=== PATIENT | male | born 1950 | race Caucasian/White ===

== ENCOUNTER → 2016-03-29 | Outpatient (CLI) | payer MEDICARE | LOC: RAD 13:52 | PROVIDERS: ATTEND Physician Assistant | DX: N50.9 Disorder of male genital organs, unspecified (principal) | CPT/HCPCS: 76870 ==

== ENCOUNTER → 2016-10-22 | Outpatient (CLI) | payer MEDICARE ==
--- NOTE | 2016-10-22 08:30 | RADIOLOGY REPORT (SQ) ---
EXAM DESCRIPTION: U/S ABDOMEN LIMITED W/O DOP COMPLETED DATE/TIME: 10/22/2016 8:13 am REASON FOR STUDY: ABN LFT (R94.5) R94.5 ABNORMAL RESULTS OF LIVER FUNCTION STUDIES COMPARISON: None. TECHNIQUE: Dynamic and static grayscale images acquired of the abdomen and recorded on PACS. Additio nal selected color Doppler and spectral images recorded. LIMITATIONS: None. FINDINGS: PANCREAS: The visualized portion of the pancreas are normal in appearance. LIVER: There is a simple cyst in the left lobe measured 2.9 x 2.6 x 2.4 cm. The liver is echogenic c onsistent with fatty infiltration. LIVER VASCULATURE: Normal directional flow of the main portal vein and hepatic veins. GALLBLADDER: No stones. Normal wall thickness. No pericholecystic fluid. ULTRASOUND-DETECTED BASSETT'S SIGN: Negative. INTRAHEPATIC DUCTS AND COMMON DUCT: CBD and intrahepatic ducts normal caliber. No filling defects. INFERIOR VENA CAVA: Normal flow. AORTA: No aneurysm. RIGHT KIDNEY: Normal size. Normal echogenicity. No solid or suspicious masses. No hydronephrosis. No calcifications. PERITONEAL AND RIGHT PLEURAL SPACE: No ascites or effusions. OTHER: No other significant findings. IMPRESSION: Fatty infiltrated liver with a simple cyst in the left lobe. TECHNICAL DOCUMENTATION: JOB ID: [id number] [employer]- All Rights Reserved
== END ==
LOC: RAD 07:30
PROVIDERS: ATTEND Family Medicine
DX: R94.5 Abnormal results of liver function studies (principal)
CPT/HCPCS: 76705

== ENCOUNTER → 2016-10-29 | Outpatient (CLI) | payer MEDICARE ==
--- NOTE | 2016-10-29 11:48 | RADIOLOGY REPORT (SQ) ---
EXAM DESCRIPTION: CT CHEST WITHOUT COMPLETED DATE/TIME: 10/29/2016 10:17 am REASON FOR STUDY: COUGH (R05) R05 COUGH COMPARISON: Three-way abdomen series 430 2007 Abdominal ultrasound 10/22/2016 TECHNIQUE: CT scan performed of the chest without intravenous contrast. Images reviewed with lung, soft tissue and bone windows. Reconstructed coronal and sagittal MPR images reviewed. All images st ored on PACS. All CT scanners at this facility use dose modulation, iterative reconstruction, and/or weight based d osing when appropriate to reduce radiation dose to as low as reasonably achievable (ALARA). [facility]: Dose Right [facility]: CareDose [facility]: Dose Right [facility]: Teradose 4D [facility]: [employer] RADIATION DOSE: Up-to-date CT equipment and radiation dose reduction techniques were employed. CTDIv ol: 16.5 mGy. DLP: 649 mGy-cm. mGy. LIMITATIONS: No technical limitations. FINDINGS: LUNGS AND PLEURA: No masses, infiltrates, pneumothorax. No pleural effusions, calcificati ons. HILAR AND MEDIASTINAL STRUCTURES: No identified masses or abnormal nodes. No obvious aneurysm. HEART AND VASCULAR STRUCTURES: No aneurysm. No pericardial effusion. Minimal coronary artery calcif ication. UPPER ABDOMEN: Benign hepatic cysts, similar compared to abdominal ultrasound 10/22/2016 THYROID AND OTHER SOFT TISSUES: No masses. No adenopathy. BONES: No significant finding. HARDWARE: None in the chest. OTHER: No other significant findings. IMPRESSION: NO SIGNIFICANT FINDING ON NON-CONTRASTED CHEST CT. TECHNICAL DOCUMENTATION: JOB ID: [id number] Quality ID # [id number]: Final reports with documentation of one or more dose reduction techniques (e.g., Au tomated exposure control, adjustment of the mA and/or kV according to patient size, use of iterative reconstruction technique) 2010 [employer]- All Rights Reserved
== END ==
LOC: RAD 09:53
PROVIDERS: ATTEND Family Medicine
DX: R05 Cough (principal)
CPT/HCPCS: 71250

== ENCOUNTER → 2017-08-08 | Outpatient (CLI) | payer MEDICARE ==
--- NOTE | 2017-08-08 13:20 | XCELERA REPORT ---
[address] [address] Lower Extremity Venous Evaluation Name: STEPHANY GOODE Age: 67 yrs Gender: Male : 1950 Patient Status: Outpatient Patient Location: Study Date: 08/08/2017 11:14 AM Procedure: Color flow and duplex imaging of the veins of the left lower extremity as well as the right Common Femoral vein. Reason For Study: LLE PAIN Ordering Physician: KEHINDE PEARSON Performed By: Latanya Arreola Right Sided Venous Evaluation The right common femoral vein is fully compressible. Spontaneous and phasic flow is present in the right common femoral vein. Left Sided Venous Evaluation Normal vessel filling wall to wall, compression and augmentation as well as Colour flow down to the infrageniculate veins. Interpretation Summary No duplex evidence of DVT or obstruction in the left lower extremity nor in the right Common Femoral vein. : KEHINDE PEARSON > Dez Gallegos
== END ==
LOC: SP 10:19
PROVIDERS: ATTEND Family Medicine
DX: M79.605 Pain in left leg (principal)
CPT/HCPCS: 93971

== ENCOUNTER → 2017-09-02 | Outpatient (CLI) | payer MEDICARE, OTHER ==
--- NOTE | 2017-09-02 09:20 | RADIOLOGY REPORT (SQ) ---
EXAM DESCRIPTION: ANKLE LEFT COMPLETE COMPLETED DATE/TIME: 09/02/2017 9:11 am REASON FOR STUDY: NON-PRESSURE CHRONIC ULCER OF LEFT ANKLE W FAT LAYER EXPOSED (L97.322) L97.322 N ON-PRESSURE CHRONIC ULCER OF LEFT ANKLE W FAT LAYER COMPARISON: None. NUMBER OF VIEWS: Three views. TECHNIQUE: AP, lateral, and oblique radiographic images acquired of the left ankle. LIMITATIONS: None. FINDINGS: MINERALIZATION: Normal. BONES: No acute fracture or dislocation. No worrisome bone lesions. JOINTS: No effusions. SOFT TISSUES: Mild soft tissue swelling. Surgical metallic clips in the posteromedial soft tissues. OTHER: No other significant finding. IMPRESSION: NEGATIVE STUDY OF THE LEFT ANKLE. TECHNICAL DOCUMENTATION: JOB ID: [id number] [employer]- All Rights Reserved Reading location - IP/workstation name: [email or web address]
== END ==
LOC: RAD 08:43
PROVIDERS: ATTEND Nurse Practitioner
DX: L97.322 Non-pressure chronic ulcer of left ankle with fat layer exposed (principal)

== ENCOUNTER → 2017-09-12 | Outpatient (CLI) | payer MEDICARE, OTHER ==
--- NOTE | 2017-09-14 14:01 | XCELERA REPORT ---
[address] [address] Lower Extremity Arterial Evaluation Name: STEPHANY GOODE Age: 67 yrs Gender: Male : 1950 Patient Status: Outpatient Patient Location: Study Date: 09/12/2017 01:20 PM Procedure: A color flow and duplex scan of the lower extremity arteries was performed bilaterally with velocity and waveform anaylsis. Reason For Study: ULCER Ordering Physician: PRATEEK BRASWELL Performed By: Jensen Shanks Measurements and Calculations Right Left [employer] MECHANIC PSV 99.9 101.8 cm/sec Prox PFA PSV 74.4 -71.0 cm/sec Prox SFA PSV 98.1 91.8 cm/sec Mid SFA PSV -101.8 -120.8 cm/sec Dist SFA PSV -89.3 -74.4 cm/sec Prox Pop A PSV 79.2 86.0 cm/sec Dist LUX PSV 70.7 65.2 cm/sec Dist DIRECTOR OF TRANSPORTATION PSV 66.8 120.8 cm/sec Elio Pedis PSV 43.2 90.8 cm/sec Right Side Arterial Evaluation Normal velocity and triphasic waveforms noted from the Common Femoral artery to the infrageniculate vessels. 0 % stenosis. Ankle Brachial index is 1.07. Left Side Arterial Evaluation Normal velocity and triphasic waveforms noted from the Common Femoral artery to the infrageniculate vessels. Reversed flow in the Dorsalis Pedis. 0-19 % stenosis in the Dorsalis Pedis.. Ankle Brachial index is 1.07. Interpretation Summary No hemodynamically significant lesions in the right lower extremity only, on duplex imaging, at rest. Mild hemodynamically significant lesions in the left lower extremity only, on duplex imaging, at rest. : PRATEEK BRASWELL > Dez Gallegos
== END ==
LOC: SP 12:46
PROVIDERS: ATTEND Nurse Practitioner
DX: L97.322 Non-pressure chronic ulcer of left ankle with fat layer exposed (principal)
CPT/HCPCS: 93922; 93925

== ENCOUNTER → 2017-11-01 | Outpatient (CLI) | payer MEDICARE, OTHER ==
--- NOTE | 2017-11-01 10:52 | RADIOLOGY REPORT (SQ) ---
EXAM DESCRIPTION: U/S ABDOMEN LIMITED W/O DOP COMPLETED DATE/TIME: 11/01/2017 10:41 am REASON FOR STUDY: FATTY (CHANGE OF) LIVER, NOT ELSEWHERE CLASSIFIED K76.0 FATTY (CHANGE OF) LIVER, NOT ELSEWHERE CLASSIFIED COMPARISON: 10/22/2016 TECHNIQUE: Dynamic and static grayscale images acquired of the abdomen and recorded on PACS. Additio nal selected color Doppler and spectral images recorded. LIMITATIONS: None. FINDINGS: PANCREAS: No masses. Visualized pancreatic duct normal caliber. LIVER: There is fatty infiltration of the liver. Small cyst in the left lobe is again noted. No int erval change. LIVER VASCULATURE: Normal directional flow of the main portal vein and hepatic veins. GALLBLADDER: No stones. Normal wall thickness. No pericholecystic fluid. ULTRASOUND-DETECTED BASSETT'S SIGN: Negative. INTRAHEPATIC DUCTS AND COMMON DUCT: CBD and intrahepatic ducts normal caliber. No filling defects. INFERIOR VENA CAVA: Normal flow. AORTA: No aneurysm. RIGHT KIDNEY: Normal size. Normal echogenicity. No solid or suspicious masses. No hydronephrosis. No calcifications. PERITONEAL AND RIGHT PLEURAL SPACE: No ascites or effusions. OTHER: No other significant findings. IMPRESSION: Fatty infiltrated liver with a small cyst in the left lobe. Findings are stable from 20 17. TECHNICAL DOCUMENTATION: JOB ID: [id number] [employer]- All Rights Reserved Reading location - IP/workstation name: [email or web address]
== END ==
LOC: RAD 09:36
PROVIDERS: ATTEND Family Medicine
DX: K76.0 Fatty (change of) liver, not elsewhere classified (principal)
CPT/HCPCS: 76705

== ENCOUNTER → 2018-12-03 | Outpatient (CLI) | payer MEDICARE, OTHER ==
--- NOTE | 2018-12-03 08:22 | RADIOLOGY REPORT (SQ) ---
EXAM DESCRIPTION: U/S ABDOMEN LIMITED W/O DOP COMPLETED DATE/TIME: 12/03/2018 7:40 am REASON FOR STUDY: FATTY (CHANGE OF) LIVER, NEC (K76.0) K76.0 FATTY (CHANGE OF) LIVER, NOT ELSEWHERE CLASSIFIED COMPARISON: 11/01/2017 TECHNIQUE: Dynamic and static grayscale images acquired of the abdomen and recorded on PACS. Additio nal selected color Doppler and spectral images recorded. LIMITATIONS: None. FINDINGS: PANCREAS: The pancreas is obscured by overlying bowel gas. LIVER: Echotexture is coarse with increased echogenicity consistent with fatty infiltration. Multipl e hepatic cysts. Mild hepatomegaly. The liver measures 20.9 cm in cranial caudal dimensions. LIVER VASCULATURE: Normal directional flow of the main portal vein and hepatic veins. GALLBLADDER: No stones. Normal wall thickness. No pericholecystic fluid. ULTRASOUND-DETECTED BASSETT'S SIGN: Negative. INTRAHEPATIC DUCTS AND COMMON DUCT: CBD and intrahepatic ducts normal caliber. No filling defects. RIGHT KIDNEY: Normal size. Normal echogenicity. No solid or suspicious masses. No hydronephros is. No calcifications. PERITONEAL AND RIGHT PLEURAL SPACE: No ascites or effusions. OTHER: Visualized portions of the aorta are normal in caliber. IMPRESSION: FATTY INFILTRATION OF THE LIVER. OTHERWISE NORMAL RIGHT UPPER QUADRANT ULTRASOUND. TECHNICAL DOCUMENTATION: JOB ID: [id number] [employer]- All Rights Reserved Reading location - IP/workstation name: [email or web address]
== END ==
LOC: RAD 07:08
PROVIDERS: ATTEND Family Medicine
DX: K76.0 Fatty (change of) liver, not elsewhere classified (principal)
CPT/HCPCS: 76705

== ENCOUNTER → 2019-07-08 | Outpatient (CLI) | payer MEDICARE, OTHER ==
[2019-07-08 09:21] LABS: ABSOLUTE BASOPHILS # (AUTO) 0.1 10^3/uL (0.0-0.2); ABSOLUTE EOSINOPHILS # (AUTO) 0.5 10^3/uL (0.0-0.6); ABSOLUTE LYMPHOCYTES (AUTO) 0.4 10^3/uL (0.5-4.7); ABSOLUTE MONOCYTES (AUTO) 0.5 10^3/uL (0.1-1.4); ABSOLUTE NEUT (AUTO) 3.8 10^3/uL (1.7-8.2); EOSINOPHILS % (AUTO) 9.5 % (0-6); HEMATOCRIT 35.6 % (37.9-51.0); LYMPHOCYTES % (AUTO) 7.5 % (13-45); MEAN CORPUSCULAR HGB CONC 36.6 g/dL (32.0-36.0); MEAN CORPUSCULAR VOLUME 98 fl (80-97); MONOCYTES % (AUTO) 9.1 % (3-13); RED BLOOD COUNT 3.63 10^6/uL (4.35-5.55); RED CELL DISTRIBUTION WIDTH 13.5 % (11.5-14.0); SEGMENTED NEUTROPHILS % (AUTO) 72.9 % (42-78); TOTAL CELLS COUNTED % (AUTO) 100 %; WHITE BLOOD COUNT 5.2 10^3/uL (4.0-10.5)
[2019-07-08 09:37] LABS: ALKALINE PHOSPHATASE 84 U/L (38-126); ANION GAP 12 (5-19); ASPARTATE AMINO TRANSFERASE 80 U/L (17-59); BILIRUBIN,DIRECT 0.3 mg/dL (0.0-0.4); BILIRUBIN,TOTAL 1.3 mg/dL (0.2-1.3); BLOOD UREA NITROGEN 19 mg/dL (7-20); CALCIUM 9.1 mg/dL (8.4-10.2); CARBON DIOXIDE 21 mmol/L (22-30); CHLORIDE 104 mmol/L (98-107); CHOLESTEROL 116.31 mg/dL (0-200); GLUCOSE 127 mg/dL (75-110); POTASSIUM 3.8 mmol/L (3.6-5.0); TOTAL PROTEIN 8.2 g/dL (6.3-8.2); TRIGLYCERIDES 88 mg/dL (<150)
[2019-07-08 09:55] LABS: DIRECT LDL 87 mg/dL (<100)
[2019-07-08 10:22] LABS: PLATELET COUNT 70 10^3/uL (150-450)
== END ==
LOC: OD 08:17
PROVIDERS: ATTEND Family Medicine
DX: E78.2 Mixed hyperlipidemia (principal); E03.9 Hypothyroidism, unspecified; E11.59 Type 2 diabetes mellitus with other circulatory complications; R10.32 Left lower quadrant pain
CPT/HCPCS: 36415; 80053; 80061; 83036; 83690; 84436; 84443; 85025

== ENCOUNTER 2019-07-15 13:33 | Emergency (ER) | payer MEDICARE, OTHER ==
--- NOTE | 2019-07-15 14:07 | ER Document Report ---
ED Medical Screen (RME) - General Chief Complaint: Leg Pain Stated Complaint: LEG PAIN Time Seen by Provider: 07/15/19 14:00 Primary Care Provider: KEHINDE PEARSON MD [Primary Care Provider] - Follow up as needed Mode of Arrival: Ambulatory Information source: Patient Notes: Patient presents complaining of left lower extremity pain and swelling for the past week. Patient has a history of DVT and is concerned about this. Patient is not presently on any anticoagulants. Patient states that he does have a venous stasis ulcer to the left ankle that appears to be getting larger. Patient also states that his platelets have been low and he sees an oncologist for this. Patient also reports a history of diabetes. I have greeted and performed a rapid initial assessment of this patient. A comprehensive ED assessment and evaluation of the patient, analysis of test results and completion of the medical decision making process will be conducted by additional ED providers. TRAVEL OUTSIDE OF THE [place] IN LAST 30 DAYS: No Physical Exam - General General appearance: Alert Notes: Left lower extremity swelling, tenderness, chronic stasis wound to medial aspect of left ankle Doctor's Discharge - Discharge Referrals: KEHINDE PEARSON MD [Primary Care Provider] - Follow up as needed
[2019-07-15 15:05] LABS: ALBUMIN 3.6 g/dL (3.5-5.0); ALKALINE PHOSPHATASE 71 U/L (38-126); ANION GAP 10 (5-19); ASPARTATE AMINO TRANSFERASE 62 U/L (17-59); BILIRUBIN,DIRECT 0.3 mg/dL (0.0-0.4); BILIRUBIN,TOTAL 1.1 mg/dL (0.2-1.3); BLOOD UREA NITROGEN 20 mg/dL (7-20); CALCIUM 8.5 mg/dL (8.4-10.2); CARBON DIOXIDE 20 mmol/L (22-30); CHLORIDE 108 mmol/L (98-107); GLUCOSE 110 mg/dL (75-110); POTASSIUM 3.5 mmol/L (3.6-5.0); TOTAL PROTEIN 7.6 g/dL (6.3-8.2)
--- NOTE | 2019-07-15 15:14 | ER Document Report ---
ED General - General Chief Complaint: Leg Pain Stated Complaint: LEG PAIN Time Seen by Provider: 07/15/19 14:00 Primary Care Provider: KEHINDE PEARSON MD [Primary Care Provider] - Follow up as needed Mode of Arrival: Ambulatory Notes: 69 male with remote history of DVT off blood thinners now presents with 1 week of left leg swelling pain tenderness and shiny edema. Worse with walking and wh en keeping it down. No chest pain or shortness of breath. No fever. History of low plateletsfollowed by Dr. Jose Robert. Denies chest pain shortness of breath or fever. No numbness or tingling that e xtremity. TRAVEL OUTSIDE OF THE [place] IN LAST 30 DAYS: No - Related Data Allergies/Adverse Reactions: No Known Allergies Allergy (Unverified 07/15/19 15:42) Past Medical History - General Information source: Patient - Social History Smoking Status: Former Smoker Family History: Reviewed & Not Pertinent - Medical History Medical History: Other - DVT hematologic problems Review of Systems - Review of Systems Notes: REVIEW OF SYSTEMS GEN: Denies fever, chills, weight loss ENT: Denies sore throat, nasal discharge, ear pain EYES: Denies blurry vision, eye pain, discharge CV: Denies chest pain, palpitations, edema RESP: Denies cough, shortness of breath, wheezing GI: Denies abdominal pain, nausea, vomiting, diarrhea MSK: PI, SKIN: See HPI LYMPH: Denies swollen glands/lymph nodes NEURO: Denies headache, focal weakness or numbness, dizziness PSYCH: Denies depression, suicidal or homicidal ideation PHYSICAL EXAMINATION General: No acute distress, well-nourished Head: Atraumatic, normocephalic ENT: Mouth normal, oropharynx moist, no exudates or tonsillar enlargement Eyes: Conjunctiva normal, pupils equal, lids normal Neck: No JVD, supple, no guarding CVS: Normal rate, regular rhythm, no murmurs Resp: No resp distress, equal and normal breath sounds bilaterally GI: Nondistended, soft, no tenderness to palpation, no rebound or guarding Ext: Left calf edema from the popliteal down to the foot shiny tender with mild erythema. No fluctuance bullae crepitus or other concerning findings t Back: No CVA or midline TTP Skin: No rash, warm Lymphatic: No lymphadeopathy noted Neuro: Awake, alert. Face symmetric. GCS 15. Physical Exam - Vital signs Vitals: Temp Pulse Resp BP Pulse Ox 98.7 F 80 18 142/68 H 98 07/15/19 13:59 07/15/19 13:59 07/15/19 13:59 07/15/19 13:59 07/15/19 13:59 Course - Re-evaluation Re-evalutation: 07/15/19 15:13 Unilateral leg swelling with a history of DVT, physical exam is more consistent with cellulitis. X-ray examined the patient while the vascular technologist was performing his Doppler, and did not find any acute or chronic DVT or superficial thrombosis. Assuming a white count that is reasonably within normal range and no horrible thrombocytopenia and when to treat him with oral antibiotics and refer him back to his primary care. I have discussed with the patient there likely diagnosis, aftercare plan, follow-up plans and my usual and customary return precautions. They verbalized understanding of this. - Vital Signs Vital signs: Temp Pulse Resp BP Pulse Ox 98.7 F 80 18 142/68 H 98 07/15/19 15:42 07/15/19 13:59 07/15/19 13:59 07/15/19 13:59 07/15/19 13:59 07/15/19 16:27 Platelets 50-farhad, slightly down from 70 but no active bleeding. Leg does not appear to be a spontaneous bleed/minimus of compartment syndrome. Discharged with Keflex, elevate compress and follow-up with Dr. Jose Robert. - Laboratory Result Diagrams: 07/15/19 15:22 07/15/19 14:22 Laboratory results interpreted by me: 07/15/19 07/15/19 14:22 15:22 RBC 3.26 L Hgb 11.7 L Hct 32.5 L MCV 100 H MCH 36.0 H Plt Count 51 L Lymph % (Auto) 8.9 L Elliott % (Auto) 13.8 H Eos % (Auto) 9.6 H Absolute Lymphs (auto) 0.4 L Potassium 3.5 L Chloride 108 H Carbon Dioxide 20 L AST 62 H - Diagnostic Test Radiology reviewed: Image reviewed, Reports reviewed Discharge - Discharge Clinical Impression: Cellulitis of left lower limb Condition: Good Disposition: HOME, SELF-CARE Instructions: Cellulitis ([facility]) Prescriptions: Cephalexin [Cephalexin 500 MG Tablet] 1 tab PO QID #40 tablet Referrals: KEHINDE PEARSON MD [Primary Care Provider] - Follow up as needed
[2019-07-15 15:43] LABS: ABSOLUTE EOSINOPHILS # (AUTO) 0.5 10^3/uL (0.0-0.6); ABSOLUTE LYMPHOCYTES (AUTO) 0.4 10^3/uL (0.5-4.7); ABSOLUTE MONOCYTES (AUTO) 0.7 10^3/uL (0.1-1.4); ABSOLUTE NEUT (AUTO) 3.2 10^3/uL (1.7-8.2); EOSINOPHILS % (AUTO) 9.6 % (0-6); HEMATOCRIT 32.5 % (37.9-51.0); HEMOGLOBIN 11.7 g/dL (13.5-17.0); LYMPHOCYTES % (AUTO) 8.9 % (13-45); MEAN CORPUSCULAR VOLUME 100 fl (80-97); MONOCYTES % (AUTO) 13.8 % (3-13); RED BLOOD COUNT 3.26 10^6/uL (4.35-5.55); RED CELL DISTRIBUTION WIDTH 13.3 % (11.5-14.0); SEGMENTED NEUTROPHILS % (AUTO) 66.7 % (42-78); TOTAL CELLS COUNTED % (AUTO) 100 %; WHITE BLOOD COUNT 4.8 10^3/uL (4.0-10.5)
[2019-07-15 16:02] LABS: PLATELET COUNT 51 10^3/uL (150-450)
--- NOTE | 2019-07-15 16:10 | RADIOLOGY REPORT (SQ) ---
EXAM DESCRIPTION: VENOUS UNILATERAL LOWER IMAGES COMPLETED DATE/TIME: 07/15/2019 3:43 pm REASON FOR STUDY: LLE pain, swelling COMPARISON: None. TECHNIQUE: Dynamic and static mcguire scale and color images acquired of the left leg venous system. Se lected spectral images acquired with additional compression and augmentation maneuvers. The contralat eral common femoral vein and saphenofemoral junction were also imaged. Images stored on PACS. LIMITATIONS: None. FINDINGS: COMMON FEMORAL: Normal phasicity, compression and augmentation. No visualized echogenic ma terial on mcguire scale. No defects on color images. FEMORAL: Normal compression and augmentation. No visualized echogenic material on mcguire scale. No defe cts on color images. POPLITEAL: Normal compression, augmentation. No visualized echogenic material on mcguire scale. No defec ts on color images. CALF VESSELS: Normal compression, augmentation. No visualized echogenic material on mcguire scale. No de fects on color images. GSV: The vessel has been previously stripped. ANY DEEP VENOUS INSUFFICIENCY: No. ANY EVIDENCE OF POPLITEAL CYST: No. OTHER: No other finding. CONTRALATERAL COMMON FEMORAL VEIN AND SAPHENOFEMORAL JUNCTION: Normal phasicity, compression and augmentation. No visualized echogenic material on mcguire scale. No de fects on color images. IMPRESSION: NO EVIDENCE OF DVT OR SVT IN THE LEFT LEG. TECHNICAL DOCUMENTATION: JOB ID: [id number] 2010 [employer]- All Rights Reserved Reading location - IP/workstation name: [email or web address]
[2019-07-15 17:02] VITALS: BP 144/74
== END 2019-07-15 17:04 | disposition home or self-care (01) ==
LOC: ER 13:33
DX: L03.116 Cellulitis of left lower limb (principal); Z86.718 Personal history of other venous thrombosis and embolism; Z87.891 Personal history of nicotine dependence
CPT/HCPCS: 36415; 80053; 85025; 93971; 99283

== ENCOUNTER → 2019-08-10 | Outpatient (CLI) | payer MEDICARE, OTHER ==
--- NOTE | 2019-08-11 08:34 | RADIOLOGY REPORT (SQ) ---
EXAM DESCRIPTION: ARTERIAL LOWER EXTREM BILAT IMAGES COMPLETED DATE/TIME: 08/10/2019 4:10 pm REASON FOR STUDY: LT ANKLE ULCER L97.322 NON-PRESSURE CHRONIC ULCER OF LEFT ANKLE W FAT LAYER COMPARISON: None. TECHNIQUE: Dynamic and static mcguire scale and color images acquired of the lower extremity arteries. Additional selected spectral images recorded. ABIs recorded. LIMITATIONS: None. FINDINGS: RIGHT LEG: ABIS: Normal, over 1.0. INFLOW ARTERIES: Normal, no obstruction evident. FEMORAL ARTERIES:Multiphasic waveforms. Normal, no velocity elevation to suggest focal stenosis. Norm al color Doppler evaluation. No aneurysm. POPLITEAL ARTERY:Multiphasic waveforms. Normal, no velocity elevation to suggest focal stenosis. Norm al color Doppler evaluation. No aneurysm. PATENT TIBIOPERONEAL TRUNK AND 3 VESSEL RUNOFF: Yes, normal vessels. TBI: Not performed. OTHER: No other significant finding. LEFT LEG: ABIS: Normal, over 1.0. INFLOW ARTERIES: Normal, no obstruction evident. FEMORAL ARTERIES:Multiphasic waveforms. Normal, no velocity elevation to suggest focal stenosis. Norm al color Doppler evaluation. No aneurysm. POPLITEAL ARTERY:Multiphasic waveforms. Normal, no velocity elevation to suggest focal stenosis. Norm al color Doppler evaluation. No aneurysm. PATENT TIBIOPERONEAL TRUNK AND 3 VESSEL RUNOFF: Yes, normal vessels. TBI: Not performed. OTHER: No other significant finding. IMPRESSION: NORMAL BILATERAL LOWER EXTREMITY ARTERIAL DOPPLER WITH ABIs. COMMENT: NAINA NORMAL: Greater than 1.0 MINIMAL DISEASE: 0.9 to 1.0 CLAUDICATION: 0.5 to 0.9 SEVERE ARTERIAL DISEASE: Less than 0.5 [facility] NORMAL: Greater than 1.0 (1.2 If Heavy Calcifications) NORMAL TO MILD ISCHEMIA: 0.8 to 1.0 MODERATE ISCHEMIA: 0.4 to 0.8 SEVERE ISCHEMIA: Less than 0.4 TECHNICAL DOCUMENTATION: JOB ID: [id number] 2010 [email or web address]- All Rights Reserved Reading location - IP/workstation name: [email or web address]
== END ==
LOC: SP 08:48
PROVIDERS: ATTEND Nurse Practitioner Family
DX: E11.621 Type 2 diabetes mellitus with foot ulcer (principal); L97.322 Non-pressure chronic ulcer of left ankle with fat layer exposed
CPT/HCPCS: 93922; 93925

== ENCOUNTER → 2019-08-10 | Outpatient (CLI) | payer MEDICARE, OTHER ==
--- NOTE | 2019-08-10 10:55 | RADIOLOGY REPORT (SQ) ---
EXAM DESCRIPTION: ANKLE LEFT COMPLETE IMAGES COMPLETED DATE/TIME: 08/10/2019 10:46 am REASON FOR STUDY: NON-PRESSURE CHRONIC ULCER OF LEFT ANKLE W FAT LAYER EXPOSED L97.322 NON-PRESSURE CHRONIC ULCER OF LEFT ANKLE W FAT LAYER E11.621 TYPE 2 DIABETES MELLITUS WITH FOOT ULCER COMPARISON: None. NUMBER OF VIEWS: Three views. TECHNIQUE: AP, lateral, and oblique radiographic images acquired of the left ankle. LIMITATIONS: None. FINDINGS: MINERALIZATION: Normal. BONES: No acute fracture, erosions, or dislocation. No radiographic evidence of osteomyelitis. Retr ocalcaneal spur. JOINTS: No effusions. SOFT TISSUES: Surgical metallic clips in the soft tissues along the posteromedial aspect of the left ankle. OTHER: No other significant finding. IMPRESSION: 1. No acute osseous findings. TECHNICAL DOCUMENTATION: JOB ID: [id number] 2010 [employer]- All Rights Reserved Reading location - IP/workstation name: [email or web address]
[2019-08-10 11:41] LABS: ABSOLUTE EOSINOPHILS # (AUTO) 0.3 10^3/uL (0.0-0.6); ABSOLUTE LYMPHOCYTES (AUTO) 0.3 10^3/uL (0.5-4.7); ABSOLUTE MONOCYTES (AUTO) 0.6 10^3/uL (0.1-1.4); ABSOLUTE NEUT (AUTO) 2.5 10^3/uL (1.7-8.2); BASOPHILS % (AUTO) 1.3 % (0-2); EOSINOPHILS % (AUTO) 7.1 % (0-6); HEMATOCRIT 34.6 % (37.9-51.0); HEMOGLOBIN 12.3 g/dL (13.5-17.0); LYMPHOCYTES % (AUTO) 9.1 % (13-45); MEAN CORPUSCULAR HEMOGLOBIN 35.2 pg (27.0-33.4); MEAN CORPUSCULAR HGB CONC 35.7 g/dL (32.0-36.0); MEAN CORPUSCULAR VOLUME 99 fl (80-97); MONOCYTES % (AUTO) 16.1 % (3-13); RED CELL DISTRIBUTION WIDTH 13.4 % (11.5-14.0); SEGMENTED NEUTROPHILS % (AUTO) 66.4 % (42-78); TOTAL CELLS COUNTED % (AUTO) 100 %; WHITE BLOOD COUNT 3.7 10^3/uL (4.0-10.5)
[2019-08-10 11:56] LABS: ALKALINE PHOSPHATASE 88 U/L (38-126); ANION GAP 10 (5-19); ASPARTATE AMINO TRANSFERASE 85 U/L (17-59); BILIRUBIN,DIRECT 0.4 mg/dL (0.0-0.4); BILIRUBIN,TOTAL 1.9 mg/dL (0.2-1.3); BLOOD UREA NITROGEN 21 mg/dL (7-20); C-REACTIVE PROTEIN 14.3 mg/L (<10.0); CALCIUM 9.4 mg/dL (8.4-10.2); CARBON DIOXIDE 22 mmol/L (22-30); CHLORIDE 105 mmol/L (98-107); GLUCOSE 125 mg/dL (75-110); POTASSIUM 3.8 mmol/L (3.6-5.0); TOTAL PROTEIN 8.4 g/dL (6.3-8.2)
[2019-08-10 12:31] LABS: ERYTHROCYTE SEDIMENTATION RATE 44 mm/hr (0-20)
[2019-08-10 13:59] LABS: PLATELET COUNT 56 10^3/uL (150-450)
== END ==
LOC: WC 10:17
PROVIDERS: ATTEND Nurse Practitioner Family
DX: E11.621 Type 2 diabetes mellitus with foot ulcer (principal); L97.322 Non-pressure chronic ulcer of left ankle with fat layer exposed
CPT/HCPCS: 36415; 80053; 83036; 85025; 85652; 86140

== ENCOUNTER → 2019-09-29 | Outpatient (CLI) | payer MEDICARE, OTHER ==
--- NOTE | 2019-09-29 14:53 | RADIOLOGY REPORT (SQ) ---
EXAM DESCRIPTION: VENOUS UNILATERAL LOWER IMAGES COMPLETED DATE/TIME: 09/29/2019 2:32 pm REASON FOR STUDY: ULCER LLE L97.322 NON-PRESSURE CHRONIC ULCER OF LEFT ANKLE W FAT LAYER L08.89 OT H LOCAL INFECTIONS OF THE SKIN AND SUBCUTANEOUS TIS COMPARISON: None. TECHNIQUE: Dynamic and static mcguire scale and color images acquired of the left leg venous system. Se lected spectral images acquired with additional compression and augmentation maneuvers. The contralat eral common femoral vein and saphenofemoral junction were also imaged. Images stored on PACS. LIMITATIONS: None. FINDINGS: COMMON FEMORAL: Normal phasicity, compression and augmentation. No visualized echogenic ma terial on mcguire scale. No defects on color images. FEMORAL: Normal compression and augmentation. No visualized echogenic material on mcguire scale. No defe cts on color images. POPLITEAL: Normal compression, augmentation. No visualized echogenic material on mcguire scale. No defec ts on color images. CALF VESSELS: Normal compression, augmentation. No visualized echogenic material on mcguire scale. No de fects on color images. GSV and SSV: Normal compression, augmentation. No visualized echogenic material on mcguire scale. No def ects on color images. ANY DEEP VENOUS INSUFFICIENCY: Not evaluated. ANY EVIDENCE OF POPLITEAL CYST: No. OTHER: No other significant finding. CONTRALATERAL COMMON FEMORAL VEIN AND SAPHENOFEMORAL JUNCTION: Normal phasicity, compression and augmentation. No visualized echogenic material on mcguire scale. No de fects on color images. IMPRESSION: NO EVIDENCE DVT OR SVT IN THE LEFT LEG. TECHNICAL DOCUMENTATION: JOB ID: [id number] 2010 [employer]- All Rights Reserved Reading location - IP/workstation name: [email or web address]
== END ==
LOC: SP 13:50
PROVIDERS: ATTEND Nurse Practitioner Family
DX: E11.621 Type 2 diabetes mellitus with foot ulcer (principal); L97.322 Non-pressure chronic ulcer of left ankle with fat layer exposed; L08.89 Other specified local infections of the skin and subcutaneous tissue
CPT/HCPCS: 93971

== ENCOUNTER → 2019-09-30 | Outpatient (CLI) | payer MEDICARE, OTHER ==
[2019-09-30 09:17] LABS: ABSOLUTE BASOPHILS # (AUTO) 0.1 10^3/uL (0.0-0.2); ABSOLUTE EOSINOPHILS # (AUTO) 0.5 10^3/uL (0.0-0.6); ABSOLUTE LYMPHOCYTES (AUTO) 0.5 10^3/uL (0.5-4.7); ABSOLUTE MONOCYTES (AUTO) 0.8 10^3/uL (0.1-1.4); ABSOLUTE NEUT (AUTO) 3.1 10^3/uL (1.7-8.2); BASOPHILS % (AUTO) 1.3 % (0-2); EOSINOPHILS % (AUTO) 9.7 % (0-6); HEMOGLOBIN 12.1 g/dL (13.5-17.0); LYMPHOCYTES % (AUTO) 9.3 % (13-45); MEAN CORPUSCULAR HEMOGLOBIN 33.8 pg (27.0-33.4); MEAN CORPUSCULAR HGB CONC 34.6 g/dL (32.0-36.0); MEAN CORPUSCULAR VOLUME 98 fl (80-97); MONOCYTES % (AUTO) 16.3 % (3-13); RED BLOOD COUNT 3.58 10^6/uL (4.35-5.55); RED CELL DISTRIBUTION WIDTH 13.6 % (11.5-14.0); SEGMENTED NEUTROPHILS % (AUTO) 63.4 % (42-78); TOTAL CELLS COUNTED % (AUTO) 100 %; WHITE BLOOD COUNT 4.9 10^3/uL (4.0-10.5)
[2019-09-30 09:36] LABS: ALBUMIN 3.9 g/dL (3.5-5.0); ALKALINE PHOSPHATASE 83 U/L (38-126); ANION GAP 9 (5-19); ASPARTATE AMINO TRANSFERASE 67 U/L (17-59); BILIRUBIN,DIRECT 0.4 mg/dL (0.0-0.4); BILIRUBIN,TOTAL 1.5 mg/dL (0.2-1.3); BLOOD UREA NITROGEN 9 mg/dL (7-20); C-REACTIVE PROTEIN 20.8 mg/L (<10.0); CALCIUM 8.7 mg/dL (8.4-10.2); CARBON DIOXIDE 23 mmol/L (22-30); CHLORIDE 107 mmol/L (98-107); GLUCOSE 134 mg/dL (75-110); POTASSIUM 3.4 mmol/L (3.6-5.0); TOTAL PROTEIN 8.1 g/dL (6.3-8.2)
[2019-09-30 09:40] LABS: PLATELET COUNT 81 10^3/uL (150-450)
[2019-09-30 09:53] LABS: ERYTHROCYTE SEDIMENTATION RATE 41 mm/hr (0-20)
== END ==
LOC: WC 08:33
PROVIDERS: ATTEND Nurse Practitioner Family
DX: E11.621 Type 2 diabetes mellitus with foot ulcer (principal); L97.322 Non-pressure chronic ulcer of left ankle with fat layer exposed; L08.89 Other specified local infections of the skin and subcutaneous tissue
CPT/HCPCS: 36415; 80053; 85025; 85652; 86140

== ENCOUNTER 2020-01-11 11:16 | Emergency (ER) | payer MEDICARE, OTHER ==
--- NOTE | 2020-01-11 12:23 | ER Document Report ---
ED Medical Screen (RME) - General Stated Complaint: RECTAL BLEEDING Time Seen by Provider: 01/11/20 12:11 Primary Care Provider: MAGALY MCCRACKEN NP, BATTERY MECHANIC [Primary Care Provider] - Follow up as needed Mode of Arrival: Wheelchair Information source: Patient Notes: 69-year-old male patient presenting to the emergency department concern for passing bright red blood per rectum. Patient reports he has been having issues with his platelets. He also reports he has had cancerous polyps that were found on colonoscopy. He has never passed blood from his rectum before. He is a primary care patient of Dr. Warner. Patient reports he feels nauseous and lightheaded. He denies vomiting but states he has been "barking". Patient alert, oriented, answering all questions appropriately. No acute distress noted. Mildly tachycardic in triage, heart rate 112. I have greeted and performed a rapid initial assessment of this patient. A comprehensive ED assessment and evaluation of the patient, analysis of test results and completion of the medical decision making process will be conducted by additional ED providers. I have specifically instructed the patient or family members with the patient to immediately return to any nursing staff should anything change in the patient's condition or with their chief complaint. TRAVEL OUTSIDE OF THE [place] IN LAST 30 DAYS: No - Related Data Allergies/Adverse Reactions: No Known Allergies Allergy (Unverified 07/15/19 15:42) Past Medical History - Past Medical History Cardiac Medical History: Reports: Hx Hypertension Endocrine Medical History: Reports: Hx Diabetes Mellitus Type 2 Physical Exam - Vital signs Vitals: Temp Pulse Resp BP Pulse Ox 98.6 F 118 H 20 143/73 H 99 01/11/20 11:22 01/11/20 11:22 01/11/20 11:22 01/11/20 11:22 01/11/20 11:22 Course - Vital Signs Vital signs: Temp Pulse Resp BP Pulse Ox 98.6 F 118 H 20 143/73 H 99 01/11/20 11:22 01/11/20 11:22 01/11/20 11:22 01/11/20 11:22 01/11/20 11:22 Doctor's Discharge - Discharge Referrals: MAGALY MCCRACKEN NP, BATTER[employer] MECHANIC [Primary Care Provider] - Follow up as needed
[2020-01-11 13:13] LABS: ALBUMIN 3.9 g/dL (3.5-5.0); ALKALINE PHOSPHATASE 118 U/L (38-126); ANION GAP 12 (5-19); ASPARTATE AMINO TRANSFERASE 78 U/L (17-59); BILIRUBIN,DIRECT 0.7 mg/dL (0.0-0.4); BLOOD UREA NITROGEN 10 mg/dL (7-20); CALCIUM 9.3 mg/dL (8.4-10.2); CARBON DIOXIDE 25 mmol/L (22-30); CHLORIDE 103 mmol/L (98-107); GLUCOSE 157 mg/dL (75-110); POTASSIUM 3.5 mmol/L (3.6-5.0); TOTAL PROTEIN 8.3 g/dL (6.3-8.2)
[2020-01-11 13:23] LABS: INTERNATIONAL RATION (INR) 1.26
[2020-01-11 13:24] LABS: PARTIAL THROMBOPLASTIN TIME 39.5 SEC (23.5-35.8)
[2020-01-11 13:29] LABS: ABSOLUTE EOSINOPHILS # (AUTO) 0.2 10^3/uL (0.0-0.6); ABSOLUTE LYMPHOCYTES (AUTO) 0.5 10^3/uL (0.5-4.7); ABSOLUTE MONOCYTES (AUTO) 0.7 10^3/uL (0.1-1.4); ABSOLUTE NEUT (AUTO) 3.6 10^3/uL (1.7-8.2); BASOPHILS % (AUTO) 0.8 % (0-2); EOSINOPHILS % (AUTO) 3.1 % (0-6); HEMATOCRIT 34.3 % (37.9-51.0); HEMOGLOBIN 12.2 g/dL (13.5-17.0); LYMPHOCYTES % (AUTO) 9.5 % (13-45); MEAN CORPUSCULAR HEMOGLOBIN 34.4 pg (27.0-33.4); MEAN CORPUSCULAR HGB CONC 35.6 g/dL (32.0-36.0); MEAN CORPUSCULAR VOLUME 97 fl (80-97); MONOCYTES % (AUTO) 13.6 % (3-13); PLATELET COUNT 67 10^3/uL (150-450); RED BLOOD COUNT 3.55 10^6/uL (4.35-5.55); RED CELL DISTRIBUTION WIDTH 14.4 % (11.5-14.0); TOTAL CELLS COUNTED % (AUTO) 100 %
[2020-01-11 15:17] LABS: APPEARANCE,URINE CLEAR; BILIRUBIN,URINE NEGATIVE (NEGATIVE); COLOR,URINE AMBER; GLUCOSE, URINE NEGATIVE (NEGATIVE); KETONES,URINE NEGATIVE (NEGATIVE); LEUKOCYTE ESTERASE,URINE NEGATIVE (NEGATIVE); NITRITE,URINE NEGATIVE (NEGATIVE); PROTEIN,URINE NEGATIVE (NEGATIVE); URINE SPECIFIC GRAVITY 1.014
[2020-01-11] MEDS ORDERED: NORMAL SALINE 1000 ML 1,000 ML IV ONE ×2 (16:33→17:43)
--- NOTE | 2020-01-11 17:53 | ER Document Report ---
ED General - General Chief Complaint: Rectal Bleeding Stated Complaint: RECTAL BLEEDING Time Seen by Provider: 01/11/20 12:11 Primary Care Provider: MAGALY MCCRACKEN SHOT FIREMAN, SHOT FIREMAN [Primary Care Provider] - Follow up as needed Mode of Arrival: Wheelchair Information source: Patient TRAVEL OUTSIDE OF THE [place] IN LAST 30 DAYS: No - HPI Notes: Patient presents complaining of rectal bleeding. States about 3 AM he had a large movement of bright red blood. Since then he states he had approximately 2 more episodes. He denies being any blood thinners. He denies any previous episodes of similar problems. He does states he has had colonoscopies every 2 years for "precancerous polyps". He states he is also had diverticulitis in the past was never had bleeding with it. He does state that he has recently been diagnosed with a "mass" in his abdomen and is currently being followed by his primary care doctor and scheduled for an ultrasound. Patient states she has had pain in the right upper quadrant now for approximately 2 months. It is been relatively constant. Is worse if palpated and better if left alone. The pain is a dull ache. It has been moderate in intensity. - Related Data Allergies/Adverse Reactions: fexofenadine [From Renetta] Allergy (Verified 01/11/20 16:42) Past Medical History - General Information source: Patient - Social History Smoking Status: Current Every Day Smoker Chew tobacco use (# tins/day): No Frequency of alcohol use: Heavy Drug Abuse: None Family History: Reviewed & Not Pertinent - Past Medical History Cardiac Medical History: Reports: Hx Hypertension Endocrine Medical History: Reports: Hx Diabetes Mellitus Type 2 Review of Systems - Review of Systems Constitutional: denies: Chills, Fever Cardiovascular: denies: Chest pain, Palpitations Respiratory: denies: Cough, Short of breath -: Yes All other systems reviewed and negative Physical Exam - Vital signs Vitals: Temp Pulse Resp BP Pulse Ox 98.6 F 118 H 20 143/73 H 99 01/11/20 11:22 01/11/20 11:22 01/11/20 11:22 01/11/20 11:22 01/11/20 11:22 Interpretation: Tachycardic - General General appearance: Appears well, Alert - HEENT Head: Normocephalic, Atraumatic Eyes: Normal Pupils: PERRL - Respiratory Respiratory status: No respiratory distress Chest status: Nontender Breath sounds: Normal Chest palpation: Normal - Cardiovascular Rhythm: Tachycardia Heart sounds: Normal auscultation Murmur: No - Abdominal Inspection: Obese Distension: Distended Tenderness: Tender - Right upper quadrant Organomegaly: Hepatomegaly - Back Back: Normal, Nontender - Extremities General upper extremity: Normal inspection, Nontender, Normal color, Normal ROM, Normal temperature General lower extremity: Edema, Normal ROM. No: Alla's sign - Neurological Neuro grossly intact: Yes Cognition: Normal Orientation: AAOx4 [place] Coma Scale Eye Opening: Spontaneous [place] Coma Scale Verbal: Oriented [place] Coma Scale Motor: Obeys Commands [place] Coma Scale Total: 15 Speech: Normal Motor strength normal: LUE, RUE, LLE, RLE Sensory: Normal - Psychological Associated symptoms: Normal affect, Normal mood - Skin Skin Temperature: Warm Skin Moisture: Dry Skin Color: Erythema - Bilateral lower extremities Course - Re-evaluation Re-evalutation: 01/11/20 18:49 pt turned over to Jimenez at 650pm - Vital Signs Vital signs: Temp Pulse Resp BP Pulse Ox 98.6 F 118 H 25 H 138/66 H 97 01/11/20 11:22 01/11/20 11:22 01/11/20 18:01 01/11/20 18:01 01/11/20 18:01 - Laboratory Result Diagrams: 01/11/20 12:39 01/11/20 12:39 Laboratory results interpreted by me: 01/11/20 01/11/20 01/11/20 12:39 12:39 12:39 RBC 3.55 L Hgb 12.2 L Hct 34.3 L MCH 34.4 H RDW 14.4 H Plt Count 67 L Lymph % (Auto) 9.5 L Nobles % (Auto) 13.6 H PT 16.0 H APTT 39.5 H Potassium 3.5 L Glucose 157 H Total Bilirubin 3.0 H Direct Bilirubin 0.7 H AST 78 H Total Protein 8.3 H Urine Urobilinogen 01/11/20 14:48 RBC Hgb Hct MCH RDW Plt Count Lymph % (Auto) Nobles % (Auto) PT APTT Potassium Glucose Total Bilirubin Direct Bilirubin AST Total Protein Urine Urobilinogen 2.0 H - Diagnostic Test Radiology reviewed: Image reviewed, Reports reviewed Discharge - Discharge Clinical Impression: GI bleed Qualifiers: GI bleed type/associated pathology: melena Qualified Code(s): K92.1 - Melena Abdominal pain Qualifiers: Abdominal location: right upper quadrant Qualified Code(s): R10.11 - Right upper quadrant pain Disposition: OTHER Referrals: MAGALY MCCRACKEN NP, SHOT FIREMAN [Primary Care Provider] - Follow up as needed
--- NOTE | 2020-01-11 19:30 | RADIOLOGY REPORT (SQ) ---
EXAM DESCRIPTION: CT ABD/PELVIS WITH IV ORAL IMAGES COMPLETED DATE/TIME: 01/11/2020 7:16 pm REASON FOR STUDY: gi bleeding/ruq pain COMPARISON: None. TECHNIQUE: CT scan of the abdomen and pelvis performed using helical scanning technique with dynamic intravenous contrast injection. Oral contrast. Images reviewed with lung, soft tissue, and bone win dows. Reconstructed coronal and sagittal MPR images reviewed. Delayed images for evaluation of the ur inary system also acquired. All images stored on PACS. All CT scanners at this facility use dose modulation, iterative reconstruction, and/or weight based d osing when appropriate to reduce radiation dose to as low as reasonably achievable (ALARA). [facility]: Dose Right [facility]: CareDose [facility]: Dose Right [facility]: Teradose 4D [facility]: CalmSea CONTRAST TYPE AND DOSE: contrast/concentration: Isovue 350.00 mmol/ml; Total Contrast Delivered: 100 .0 ml; Total Saline Delivered: 56.0 ml RENAL FUNCTION: Refer to patient's chart. RADIATION DOSE: CT Rad equipment meets quality standard of care and radiation dose reduction techniq ues were employed. CTDIvol: 17.4 - 20.0 mGy. DLP: 2013 mGy-cm.. LIMITATIONS: None. FINDINGS: LOWER CHEST: No significant findings. No nodules or infiltrates. LIVER: Hepatomegaly. The liver is heterogeneous with areas of decreased attenuation. Additionally, there are 3 small cysts. SPLEEN: There is splenomegaly. PANCREAS: No masses. No significant calcifications. No adjacent inflammation or peripancreatic fluid collections. Pancreatic duct not dilated. GALLBLADDER: No identified stones by CT criteria. No inflammatory changes to suggest cholecystitis. ADRENAL GLANDS: No significant masses or asymmetry. RIGHT KIDNEY AND URETER: No solid masses. No significant calcifications. No hydronephrosis or hyd roureter. LEFT KIDNEY AND URETER: No solid masses. No significant calcifications. No hydronephrosis or hydr oureter. AORTA AND VESSELS: No aneurysm. No dissection. Renal arteries, SMA, celiac without stenosis. RETROPERITONEUM: No retroperitoneal adenopathy, hemorrhage or masses. BOWEL AND PERITONEAL CAVITY: Descending and sigmoid diverticulosis. No acute inflammatory changes. No obvious bowel mass. Evaluation for GI bleeding is limited because of the oral contrast. APPENDIX: Normal. PELVIS: No mass. No free fluid. Normal bladder. ABDOMINAL WALL: Uncomplicated right inguinal hernia. BONES: No significant or acute findings. OTHER: No other significant finding. IMPRESSION: 1. Hepatosplenomegaly. There appears to be some degree of hepatic steatosis. 2. Diverticulosis coli. 3. No obvious bowel mass is seen. 4. Uncomplicated right inguinal hernia. TECHNICAL DOCUMENTATION: JOB ID: [id number] Quality ID # [id number]: Final reports with documentation of one or more dose reduction techniques (e.g., Au tomated exposure control, adjustment of the mA and/or kV according to patient size, use of iterative reconstruction technique) 2010 [employer]- All Rights Reserved Reading location - IP/workstation name: [email or web address]
[2020-01-11 20:12] VITALS: BP 159/91
== END 2020-01-11 21:00 | disposition home or self-care (01) ==
LOC: ER 11:16
DX: K92.1 Melena (principal); K76.89 Other specified diseases of liver; R10.11 Right upper quadrant pain; F17.200 Nicotine dependence, unspecified, uncomplicated; Z88.8 Allergy status to other drugs, medicaments and biological substances; I10 Essential (primary) hypertension; E11.9 Type 2 diabetes mellitus without complications
CPT/HCPCS: 99285; 96360; 96361; 86900; 86901; 36415; 86850; 85025; 85610; 85730; 80053; 81001; 74177; J7030

== ENCOUNTER 2020-02-12 14:07 | Inpatient (IN) | payer MEDICARE, OTHER ==
[2020-02-12] MEDS ORDERED: NORMAL SALINE 250 ML IV PRN ×2 (14:16)
[2020-02-12] MEDS ORDERED: PANTOPRAZOLE SODIUM 40 MG VIAL IV ONE (14:25)
[2020-02-12 14:36] LABS: ABSOLUTE BASOPHILS # (AUTO) 0.2 10^3/uL (0.0-0.2); ABSOLUTE EOSINOPHILS # (AUTO) 0.3 10^3/uL (0.0-0.6); ABSOLUTE LYMPHOCYTES (AUTO) 0.7 10^3/uL (0.5-4.7); ABSOLUTE MONOCYTES (AUTO) 1.3 10^3/uL (0.1-1.4); BASOPHILS % (AUTO) 1.5 % (0-2); EOSINOPHILS % (AUTO) 3.3 % (0-6); HEMOGLOBIN 10.2 g/dL (13.5-17.0); LYMPHOCYTES % (AUTO) 6.5 % (13-45); MEAN CORPUSCULAR HEMOGLOBIN 33.4 pg (27.0-33.4); MEAN CORPUSCULAR HGB CONC 35.3 g/dL (32.0-36.0); MEAN CORPUSCULAR VOLUME 95 fl (80-97); MONOCYTES % (AUTO) 12.1 % (3-13); RED BLOOD COUNT 3.07 10^6/uL (4.35-5.55); RED CELL DISTRIBUTION WIDTH 15.5 % (11.5-14.0); SEGMENTED NEUTROPHILS % (AUTO) 76.6 % (42-78); TOTAL CELLS COUNTED % (AUTO) 100 %; WHITE BLOOD COUNT 10.4 10^3/uL (4.0-10.5)
[2020-02-12 14:37] LABS: INTERNATIONAL RATION (INR) 1.37
--- NOTE | 2020-02-12 14:38 | RADIOLOGY REPORT (SQ) ---
EXAM DESCRIPTION: CHEST SINGLE VIEW IMAGES COMPLETED DATE/TIME: 02/12/2020 2:30 pm REASON FOR STUDY: Upper GI bleed COMPARISON: None. EXAM PARAMETERS: NUMBER OF VIEWS: One view. TECHNIQUE: An AP view of the chest was obtained. RADIATION DOSE: NA LIMITATIONS: None. FINDINGS: LUNGS AND PLEURA: No consolidation, pleural effusion or pneumothorax. MEDIASTINUM AND HILAR STRUCTURES: No mediastinal or hilar contour abnormality. HEART AND VASCULAR STRUCTURES: The cardiac silhouette and pulmonary vasculature are within normal schumacher its. BONES: No acute findings. HARDWARE: None in the chest. OTHER: No other finding. IMPRESSION: No acute cardiopulmonary process. TECHNICAL DOCUMENTATION: JOB ID: [id number] 2010 [employer]- All Rights Reserved Reading location - IP/workstation name: [email or web address]
[2020-02-12] MEDS ORDERED: ONDANSETRON HCL INJ/PF 4 MG/2 ML SDV ONE (14:43)
[2020-02-12 14:50] LABS: PLATELET COUNT 99 10^3/uL (150-450)
[2020-02-12 14:59] LABS: ALBUMIN 3.1 g/dL (3.5-5.0); ALKALINE PHOSPHATASE 71 U/L (38-126); ANION GAP 9 (5-19); ASPARTATE AMINO TRANSFERASE 63 U/L (17-59); BILIRUBIN,DIRECT 0.3 mg/dL (0.0-0.4); BILIRUBIN,TOTAL 1.6 mg/dL (0.2-1.3); BLOOD UREA NITROGEN 10 mg/dL (7-20); CARBON DIOXIDE 23 mmol/L (22-30); CHLORIDE 105 mmol/L (98-107); CREATINE KINASE 196 U/L (55-170); GLUCOSE 202 mg/dL (75-110); POTASSIUM 3.3 mmol/L (3.6-5.0); TOTAL PROTEIN 6.9 g/dL (6.3-8.2)
[2020-02-12 15:16] LABS: VENOUS BLOOD BASE EXCESS -7.2 mmol/L; VENOUS BLOOD PCO2 35.3 mmHg (35-63); VENOUS BLOOD PH 7.33 (7.30-7.42)
[2020-02-12] MEDS ORDERED: RINGERS SOLUTION,LACTATED 1,000 ML IV PRN (16:22)
--- NOTE | 2020-02-12 17:08 | ER Document Report ---
Entered by RADHA LUNDBERG SCRIBE 02/12/20 1413 Acting as scribe for:NIGHAT ALTAMIRANO MD ED GI Bleed / Rectal Pain - General Chief Complaint: GI Bleeding Stated Complaint: POSSIBLE GI BLEED Time Seen by Provider: 02/12/20 14:08 Mode of Arrival: Medic Information source: Patient Notes: This 70 year old male patient presents to the emergency department today with complaints of vomiting blood. Patient was seen here a month ago after noticing blood in his bowel movements. He reports that he was given follow up at [facility] but the appointment has not occurred yet. CT scan of the abdomen with IV and oral contrast at that time showed hepatosplenomegaly and hepatic steatosis. He has never had GI bleed before. EMS reports patient was hypotensive and he was given 1 unit of whole blood and 1.5 L of normal saline prior to arrival. He also received 4 mg of Zofran, 50 mg of Benadryl, 12.5 mg of Phenergan for his nausea and vomiting. EMS reports there was quite a lot of blood on scene. TRAVEL OUTSIDE OF THE [place] IN LAST 30 DAYS: No - Related Data Allergies/Adverse Reactions: fexofenadine [From Renetta] Allergy (Verified 01/11/20 16:42) Past Medical History - General Information source: Patient - Social History Smoking Status: Unknown if Ever Smoked Cigarette use (# per day): No Frequency of alcohol use: None Drug Abuse: None Lives with: Family Family History: Reviewed & Not Pertinent - Past Medical History Cardiac Medical History: Reports: Hx Hypertension Endocrine Medical History: Reports: Hx Diabetes Mellitus Type 2 Surgical Hx: Negative Review of Systems - Review of Systems Constitutional: No symptoms reported EENT: No symptoms reported Cardiovascular: No symptoms reported Respiratory: No symptoms reported Gastrointestinal: See HPI, Nausea, Vomiting, Blood in vomit Genitourinary: No symptoms reported Male Genitourinary: No symptoms reported Musculoskeletal: No symptoms reported Skin: No symptoms reported Hematologic/Lymphatic: No symptoms reported Neurological/Psychological: No symptoms reported -: Yes All other systems reviewed and negative Physical Exam - Vital signs Vitals: Pulse Resp BP Pulse Ox 119 H 27 H 102/60 94 02/12/20 14:11 02/12/20 14:11 02/12/20 14:11 02/12/20 14:11 - Notes Notes: Physical Exam: General: Alert, bright red blood around mouth, appears nauseated. HEENT: Normocephalic. Atraumatic. PERRL. Extraocular movements intact. Oropharynx clear. Bright red blood around mouth. Neck: Supple. Non-tender. Respiratory: No respiratory distress. Clear and equal breath sounds bilaterally. Cardiovascular: Tachycardic. Regular rhythm. Abdominal: Obese. Protuberant abdomen. Non-tender. Normal Bowel Sounds. Back: No gross abnormalities. Extremities: Moves all four extremities. Upper extremities: Normal inspection. Normal ROM. Lower extremities: Mild edema, chronic thickening and discoloration of lower extremities. Normal ROM. Neurological: Normal cognition. AAOx4. Normal speech. Psychological: Normal affect. Normal Mood. Skin: Warm. Dry. Normal color. Course - Re-evaluation Re-evalutation: 02/12/20 16:12 The patient's hemoglobin was 10.2, this was after receiving 1 unit of whole blood in route. Patient's INR is 1.37, that is up from 1.26 a month ago. - Vital Signs Vital signs: Temp Pulse Resp BP Pulse Ox 99 F 110 H 25 H 143/83 H 98 02/12/20 19:31 02/12/20 19:32 02/12/20 18:18 02/12/20 18:18 02/12/20 18:18 - Laboratory Results Result Diagrams: 02/12/20 14:15 02/12/20 14:15 Laboratory Results Interpreted: 02/12/20 02/12/20 02/12/20 14:15 14:15 14:15 RBC 3.07 L Hgb 10.2 L Hct 29.0 L RDW 15.5 H Plt Count 99 L Lymph % (Auto) 6.5 L PT 17.0 H VBG HCO3 Potassium 3.3 L Glucose 202 H Total Bilirubin 1.6 H AST 63 H Creatine Kinase 196 H Albumin 3.1 L Crossmatch 02/12/20 02/12/20 14:15 14:59 RBC Hgb Hct RDW Plt Count Lymph % (Auto) PT VBG HCO3 18.0 L Potassium Glucose Total Bilirubin AST Creatine Kinase Albumin Crossmatch See Detail Critical Laboratory Results Reviewed: No Critical Results - Radiology Results Critical Radiology Results Reviewed: No Critical Results - Chest x-ray does not show acute cardiopulmonary process. - EKG Interpretation by Ak EKG shows normal: Sinus rhythm, [place]. abnormal: Intervals - Prolonged QT interval, QRS Complexes - Borderline R wave progression in the anterior leads, ST-T Waves - Nonspecific T abnormalities in inferior leads Rate: Tachycardia - 111 When compared to previous EKG there are: Previous EKG unavailable - Consults Dr. Reynoso Time consulted: 14:25 Consulted provider: will see as inpatient - Dr. Reynoso is agreeable to upper endoscopy later this afternoon if it is needed. Dr. Dinh Time consulted: 15:50 Consulted provider: will come to ER Critical Care Note - Critical Care Note Total time excluding time spent on procedures (mins): 40 Comments: At least 40 minutes spent evaluating the patient, collecting history from EMS. Reviewing recent ER visit, labs, and prior radiological studies. Time spent obtaining emergency release blood products and reevaluations during his resuscitation. Time spent consulting general surgeon who was able to do upper endoscopy and consulting visual arts teacher service to get the patient admitted to the intensive care unit. Discharge - Discharge Clinical Impression: Upper GI hemorrhage, Alcoholic liver disease, Thrombocytopenia, Elevated INR Hypotension Qualifiers: Hypotension type: unspecified hypotension type Qualified Code(s): I95.9 - Hypotension, unspecified Condition: Fair Disposition: ADMITTED INPATIENT Admitting Provider: Allegra (Pretzel Twisting Machine Operator) Unit Admitted: ICU I personally performed the services described in the documentation, reviewed and edited the documentation which was dictated to the scribe in my presence, and it accurately records my words and actions.
--- NOTE | 2020-02-12 17:19 | CRITICAL CARE ADMISSION REPORT ---
HPI Date:: 02/12/20 Time:: 16:00 Reason for ICU Reason:: Hypotension and UGI bleeding. Admission Date/Time & PCP: Admission Date/Time: Primary Care Provider: MAGALY MCCRACKEN NP HPI: This patient is a 70 yo man who threw up today with no blood then threw up again noticing a large amount of maroon blood. He called EMS. He was hypotensive to 60/40 and received i unit RBBCs in the ambulance, 2 more here with 2L of NS. He has stable VS now with a BP of 124/70 and a HR of 115. Color is good, awake and oriented. Will have EGD later today by Dr. Goodman. For a large UGI blled with hypotension and as yet unknown cause is not unreasonable to keep overnight in the ICU. History obtained from:: Patient and Dr. Serra. Old records. - Diagnosis/Plan (1) UGI bleed Is this a current diagnosis for this admission?: Yes Plan: The description is consistent with [place]-Castañeda tears. Vomiting that is non- bloody, followed by bleeding then stopping. He has received 80mg protonix. He has a hx of alcohol abuse, supposedly non for a month. The possibility of cirrhotic, variceal bleeding exists as does alcoholic gastritis or a bleeding ulcer. Needs EDG for dx and treatment. (2) Alcohol abuse Is this a current diagnosis for this admission?: Yes Plan: Although he claims abstinence for a month this still does not rule out varices assuming he has really been abstinent. (3) Hypotension Is this a current diagnosis for this admission?: Yes Plan: Resolved with blood and fluids. Plan Summary: Needs ICU for now and EGD tonight. Past Medical History Cardiac Medical History: Reports: Hypertension Endocrine Medical History: Reports: Diabetes Mellitus Type 2 Social/Family History - Social History Smoking Status: Current Every Day Smoker Frequency of Alcohol Use: Heavy Last Alcohol Use: 01/03/20 - Medication/Allergies Home Medications: Cephalexin [Cephalexin 500 MG Tablet] 1 tab PO QID #40 tablet 07/15/19 Allergies/Adverse Reactions: fexofenadine [From Renetta] Allergy (Verified 01/11/20 16:42) Review of Systems Constitutional: PRESENT: weakness, other - Dizzy on ED admission Eyes: ABSENT: visual disturbances Ears: ABSENT: hearing changes Cardiovascular: ABSENT: chest pain, dyspnea on exertion, edema, orthropnea, palpitations Gastrointestinal: PRESENT: abdominal pain - Mild epigastric. Musculoskeletal: ABSENT: joint swelling Integumentary: ABSENT: rash, wounds Neurological: ABSENT: abnormal gait, abnormal speech, confusion, dizziness, focal weakness, syncope Psychiatric: ABSENT: anxiety, depression, homidical ideation, suicidal ideation Endocrine: ABSENT: cold intolerance, heat intolerance, polydipsia, polyuria Hematologic/Lymphatic: ABSENT: easy bleeding, easy bruising Physical Exam Vital Signs: Temp Pulse Resp BP Pulse Ox 97.8 F 119 H 30 H 138/63 H 96 02/12/20 15:05 02/12/20 15:16 02/12/20 15:16 02/12/20 15:16 02/12/20 15:16 Intake & Output 02/11/20 02/12/20 02/13/20 06:59 06:59 06:59 Intake Total 0 Balance 0 General appearance: PRESENT: no acute distress Head exam: PRESENT: atraumatic, normocephalic Eye exam: PRESENT: conjunctiva pink, EOMI, PERRLA. ABSENT: scleral icterus Ear exam: PRESENT: normal external ear exam Mouth exam: PRESENT: moist, tongue midline Respiratory exam: PRESENT: clear to auscultation marilin. ABSENT: rales, rhonchi, wheezes Cardiovascular exam: PRESENT: RRR, tachycardia. ABSENT: diastolic murmur, rubs, systolic murmur GI/Abdominal exam: PRESENT: normal bowel sounds, soft, tenderness - In epigastrium, not severe.. ABSENT: distended, guarding, mass, organolmegaly, rebound Rectal exam: PRESENT: deferred Extremities exam: PRESENT: full ROM. ABSENT: calf tenderness, clubbing, pedal edema Musculoskeletal exam: PRESENT: normal inspection Neurological exam: PRESENT: alert, awake, oriented to person, oriented to place, oriented to time, oriented to situation, CN II-XII grossly intact. ABSENT: motor sensory deficit Psychiatric exam: PRESENT: appropriate affect, normal mood. ABSENT: homicidal ideation, suicidal ideation Skin exam: PRESENT: dry, intact, warm. ABSENT: cyanosis, rash Laboratory/Radiographs Laboratory Results: 02/12/20 14:15 02/12/20 14:15 02/12/20 02/12/20 02/12/20 14:15 14:15 14:15 WBC 10.4 RBC 3.07 L Hgb 10.2 L Hct 29.0 L MCV 95 MCH 33.4 MCHC 35.3 RDW 15.5 H Plt Count 99 L Seg Neutrophils % 76.6 VBG pH VBG pCO2 VBG HCO3 VBG Base Excess Sodium 137.2 Potassium 3.3 L Chloride 105 Carbon Dioxide 23 Anion Gap 9 BUN 10 Creatinine 1.11 Est GFR ( Amer) > 60 Glucose 202 H Calcium 9.0 Total Bilirubin 1.6 H AST 63 H Alkaline Phosphatase 71 Total Protein 6.9 Albumin 3.1 L Blood Type A POSITIVE Antibody Screen NEGATIVE 02/12/20 14:59 WBC RBC Hgb Hct MCV MCH MCHC RDW Plt Count Seg Neutrophils % VBG pH 7.33 VBG pCO2 35.3 VBG HCO3 18.0 L VBG Base Excess -7.2 Sodium Potassium Chloride Carbon Dioxide Anion Gap BUN Creatinine Est GFR ( Amer) Glucose Calcium Total Bilirubin AST Alkaline Phosphatase Total Protein Albumin Blood Type Antibody Screen 02/12/20 02/12/20 14:15 14:15 Creatine Kinase 196 H Troponin I < 0.012 Impressions: Chest X-Ray 02/12/20 14:14 IMPRESSION: No acute cardiopulmonary process. EKG: Sinus tachycardia. All labs, radiographs, diagnostic studies and EKGs were personally reviewed: Yes In addition, reports of radiographic and diagnostic studies were read: Yes Critical Time Critical Time (minutes): 40 -: The care of a critically ill patient is dynamic. This note represents a static moment in the admission process. Orders and treatments may be given simultaneously and urgently, and time is not operations representative of the treatment process. This patient requires Critical Care secondary to life threatening organ or limb dysfunction. Without Critical Care services, the patient is at risk for increased mortality and morbidity.
--- NOTE | 2020-02-12 17:38 | PDOC CONSULTATION ---
Consultation Consult Date: 02/12/20 Provider Consulted: LINETTE SYED Consult reason:: GI bleed with hypotension History of Present Illness Admission Date/PCP: 02/12/20 17:24 MAGALY MCCRACKEN NP History of Present Illness: STEPHANY GOODE is a 70 year old male with history of hypertension and chronic alcohol abuse, developed hematemesis around noontime with intermittent bloody bowel movement. Patient was brought to the emergency room but needed blood transfusion while in the ambulance because of severe hypotension. He had 2 other units of packed cells given in the emergency room. Patient drank heavily for the past 3 years and stopped about a month ago. He was seen in the ED about him month ago for GI bleed but was discharged to be followed by a [place] adzing and boring machine feeder. He is scheduled for endoscopy next week. He had a colonoscopy 3 years ago and polyps were removed and also at the same time told that he has diverticulosis and hemorrhoids. He would occasionally have some bloody stool due to his hemorrhoids. He also used to drink heavily for about 6years when he was in his late 30s. Past Medical History Cardiac Medical History: Reports: Hypertension Endocrine Medical History: Reports: Diabetes Mellitus Type 2 Social History Lives with: Family Smoking Status: Current Every Day Smoker Frequency of Alcohol Use: Heavy Family History Family History: Reviewed & Not Pertinent Parental Family History Reviewed: Yes Children Family History Reviewed: No Sibling(s) Family History Reviewed.: Yes - Brother had abdominal aortic aneurysm repaired. Medication/Allergy Home Medications: Cephalexin [Cephalexin 500 MG Tablet] 1 tab PO QID #40 tablet 07/15/19 Allergies/Adverse Reactions: fexofenadine [From Renetta] Allergy (Verified 01/11/20 16:42) Review of Systems Constitutional: PRESENT: as per HPI, other - Denies fever no chills. Nose, Mouth, and Throat: PRESENT: other - Has postnasal drip. He did have postnasal drip today and while blowing his nose started to have hematemesis. Gastrointestinal: PRESENT: abdominal pain - Mild abdominal pain on the left upper quadrant, bloating - Started to have bloating sensation in the past few days. Physical Exam Vital Signs: Temp Pulse Resp BP Pulse Ox 97.8 F 119 H 30 H 138/63 H 96 02/12/20 15:05 02/12/20 15:16 02/12/20 15:16 02/12/20 15:16 02/12/20 15:16 Intake & Output 02/11/20 02/12/20 02/13/20 06:59 06:59 06:59 Intake Total 0 Balance 0 General appearance: PRESENT: mild distress Mouth exam: PRESENT: moist Neck exam: PRESENT: full ROM Cardiovascular exam: PRESENT: tachycardia Pulses: PRESENT: normal radial pulses Vascular exam: PRESENT: normal capillary refill GI/Abdominal exam: PRESENT: distended - Mild distention, soft, tenderness - Mild tenderness in the left upper quadrant Extremities exam: PRESENT: full ROM Musculoskeletal exam: PRESENT: full ROM Neurological exam: PRESENT: alert, oriented to person, oriented to place, oriented to time, oriented to situation Psychiatric exam: PRESENT: appropriate affect Skin exam: PRESENT: normal color, warm Results Laboratory Results: 02/12/20 14:15 02/12/20 14:15 02/12/20 02/12/20 02/12/20 14:15 14:15 14:15 WBC 10.4 RBC 3.07 L Hgb 10.2 L Hct 29.0 L MCV 95 MCH 33.4 MCHC 35.3 RDW 15.5 H Plt Count 99 L Seg Neutrophils % 76.6 VBG pH VBG pCO2 VBG HCO3 VBG Base Excess Sodium 137.2 Potassium 3.3 L Chloride 105 Carbon Dioxide 23 Anion Gap 9 BUN 10 Creatinine 1.11 Est GFR ( Amer) > 60 Glucose 202 H Calcium 9.0 Total Bilirubin 1.6 H AST 63 H Alkaline Phosphatase 71 Total Protein 6.9 Albumin 3.1 L Blood Type A POSITIVE Antibody Screen NEGATIVE 02/12/20 14:59 WBC RBC Hgb Hct MCV MCH MCHC RDW Plt Count Seg Neutrophils % VBG pH 7.33 VBG pCO2 35.3 VBG HCO3 18.0 L VBG Base Excess -7.2 Sodium Potassium Chloride Carbon Dioxide Anion Gap BUN Creatinine Est GFR ( Amer) Glucose Calcium Total Bilirubin AST Alkaline Phosphatase Total Protein Albumin Blood Type Antibody Screen 02/12/20 02/12/20 14:15 14:15 Creatine Kinase 196 H Troponin I < 0.012 Impressions: Chest X-Ray 02/12/20 14:14 IMPRESSION: No acute cardiopulmonary process. Assessment & Plan - Diagnosis (1) Alcohol abuse Is this a current diagnosis for this admission?: Yes (2) Hypotension Is this a current diagnosis for this admission?: Yes (3) UGI bleed Is this a current diagnosis for this admission?: Yes - Time Time Spent: 30 to 50 Minutes - Inpatient Certification Medical Necessity: Need Close Monitoring Due to Risk of Patient Decompensation, Need For IV Fluids - Plan Summary Plan Summary: 70-year-old male hypertensive with chronic alcohol abuse started having hematemesis around noontime with bloody bowel movement. On the way to the hospital while in the ambulance patient noted to have severe hypotension and needed blood transfusion. He did have blood transfused in the ambulance. In the ED had 2 units of packed cells transfused with blood pressure about 110/70 and a heart rate of about 115. Abdomen is soft with mild tenderness in the left upper quadrant with mild distention. Denies any use of anticoagulants. INR is 1.37. Okay to admit the patient in the unit. We will keep the patient n.p.o. for possible endoscopy by Dr. Reynoso.
[2020-02-12 18:03] LABS: APPEARANCE,URINE CLEAR; BILIRUBIN,URINE NEGATIVE (NEGATIVE); COLOR,URINE YELLOW; GLUCOSE, URINE NEGATIVE (NEGATIVE); KETONES,URINE NEGATIVE (NEGATIVE); LEUKOCYTE ESTERASE,URINE NEGATIVE (NEGATIVE); NITRITE,URINE NEGATIVE (NEGATIVE); PROTEIN,URINE NEGATIVE (NEGATIVE); UROBILINOGEN,URINE NEGATIVE mg/dL (<2.0)
[2020-02-12 20:47] LABS: HEMATOCRIT 29.4 % (37.9-51.0); HEMOGLOBIN 10.3 g/dL (13.5-17.0); MEAN CORPUSCULAR HEMOGLOBIN 32.4 pg (27.0-33.4); MEAN CORPUSCULAR HGB CONC 35.1 g/dL (32.0-36.0); MEAN CORPUSCULAR VOLUME 92 fl (80-97); RED BLOOD COUNT 3.18 10^6/uL (4.35-5.55); WHITE BLOOD COUNT 6.5 10^3/uL (4.0-10.5)
[2020-02-12 21:05] LABS: PLATELET COUNT 62 10^3/uL (150-450)
[2020-02-12] MEDS: PANTOPRAZOLE SODIUM 40 MG VIAL IV SCH (21:20)
[2020-02-13 01:01] LABS: HEMATOCRIT 26.8 % (37.9-51.0); HEMOGLOBIN 9.6 g/dL (13.5-17.0); MEAN CORPUSCULAR HGB CONC 35.8 g/dL (32.0-36.0); MEAN CORPUSCULAR VOLUME 92 fl (80-97); RED CELL DISTRIBUTION WIDTH 16.4 % (11.5-14.0); WHITE BLOOD COUNT 5.6 10^3/uL (4.0-10.5)
[2020-02-13 01:23] LABS: PLATELET COUNT 61 10^3/uL (150-450)
[2020-02-13 04:32] LABS: ABSOLUTE BASOPHILS # (AUTO) 0.1 10^3/uL (0.0-0.2); ABSOLUTE EOSINOPHILS # (AUTO) 0.5 10^3/uL (0.0-0.6); ABSOLUTE LYMPHOCYTES (AUTO) 0.7 10^3/uL (0.5-4.7); ABSOLUTE MONOCYTES (AUTO) 0.6 10^3/uL (0.1-1.4); BASOPHILS % (AUTO) 1.1 % (0-2); EOSINOPHILS % (AUTO) 9.6 % (0-6); HEMATOCRIT 26.6 % (37.9-51.0); HEMOGLOBIN 9.5 g/dL (13.5-17.0); LYMPHOCYTES % (AUTO) 14.1 % (13-45); MEAN CORPUSCULAR HEMOGLOBIN 33.1 pg (27.0-33.4); MEAN CORPUSCULAR HGB CONC 35.7 g/dL (32.0-36.0); MEAN CORPUSCULAR VOLUME 93 fl (80-97); MONOCYTES % (AUTO) 12.3 % (3-13); RED BLOOD COUNT 2.86 10^6/uL (4.35-5.55); RED CELL DISTRIBUTION WIDTH 16.2 % (11.5-14.0); SEGMENTED NEUTROPHILS % (AUTO) 62.9 % (42-78); TOTAL CELLS COUNTED % (AUTO) 100 %; WHITE BLOOD COUNT 4.8 10^3/uL (4.0-10.5)
[2020-02-13 04:38] LABS: ALBUMIN 2.7 g/dL (3.5-5.0); ALKALINE PHOSPHATASE 53 U/L (38-126); ANION GAP 5 (5-19); ASPARTATE AMINO TRANSFERASE 52 U/L (17-59); BILIRUBIN,DIRECT 0.5 mg/dL (0.0-0.4); BILIRUBIN,TOTAL 2.8 mg/dL (0.2-1.3); BLOOD UREA NITROGEN 14 mg/dL (7-20); CALCIUM 8.6 mg/dL (8.4-10.2); CARBON DIOXIDE 25 mmol/L (22-30); CHLORIDE 112 mmol/L (98-107); GLUCOSE 101 mg/dL (75-110); POTASSIUM 3.5 mmol/L (3.6-5.0); TOTAL PROTEIN 6.3 g/dL (6.3-8.2)
[2020-02-13 04:42] LABS: PLATELET COUNT 58 10^3/uL (150-450)
[2020-02-13 04:43] LABS: INTERNATIONAL RATION (INR) 1.31; PROTHROMBIN TIME 16.5 SEC (11.4-15.4)
[2020-02-13] MEDS ORDERED: POTASSI CL 20 MEQ/50 ML RIDER 20 MEQ/50 ML RTUPB IV ONE (05:08)
[2020-02-13] MEDS ORDERED: INFLUENZA QUAD (6MOS+) 2020-21 VAC 0.5 ML SYR IM ONE (08:00)
[2020-02-13] MEDS: PANTOPRAZOLE SODIUM 40 MG VIAL IV SCH ×2 (09:02→21:13)
[2020-02-13] MEDS ORDERED: DIPHENHYDRAMINE HCL 50 MG/ML VIAL ONE (09:05)
[2020-02-13] MEDS ORDERED: ONDANSETRON HCL INJ/PF 4 MG/2 ML SDV ONE (09:05)
[2020-02-13] MEDS ORDERED: MIDAZOLAM 2 MG/2 ML INJ ONE (09:05)
[2020-02-13] MEDS ORDERED: NALOXONE HCL INJ/PF 0.4 MG/1 ML SDV ONE (09:05)
[2020-02-13] MEDS ORDERED: FENTANYL CITRATE INJ/PF 100 MCG/2 ML AMPUL ONE (09:05)
[2020-02-13] MEDS ORDERED: EPINEPHRINE INJ 1 MG/10 ML DISP.SYRIN ONE ×2 (09:06→09:07)
[2020-02-13] MEDS ORDERED: GLUCAGON,HUMAN RECOMB 1 MG INJ ONE (09:06)
[2020-02-13] MEDS ORDERED: FLUMAZENIL INJ 0.5 MG/5 ML VIAL ONE (09:06)
[2020-02-13] MEDS ORDERED: PROPOFOL INJ 200 MG/20 ML VIAL IV ONE (09:52)
[2020-02-13] MEDS ORDERED: NORMAL SALINE 250 ML IV PRN ×2 (10:15)
--- NOTE | 2020-02-13 10:46 | Operative Report ---
Operative Report DATE OF SURGERY: 02/13/20 PREOPERATIVE DIAGNOSIS: 1. Acute upper GI bleed. 2. History of alcoholism. 3. History of cirrhosis. 4. History of thrombocytopenia POSTOPERATIVE DIAGNOSIS: Same with severe esophageal varices involving the middle and distal thirds of the esophagus;. no active bleeding. Moderate gastritis OPERATION: Esophagogastroduodenoscopy with photodocumentation SURGEON: STAR SILVERIO ANESTHESIA: LMAC TISSUE REMOVED OR ALTERED: None COMPLICATIONS: None INTRAOPERATIVE FINDINGS: See below PROCEDURE: The patient was kept in ICU 11. Anesthesia team at bedside to provide L MAC level anesthesia. Surgical plan and surgical timeout were conducted. The patient was placed in semirecumbent position. Oral mouthpiece inserted. Appropriate level of LMAC anesthesia induced. The flexible upper endoscope was advanced to the oropharynx, through the esophagus, through the stomach, and into the first and second portions of the duodenum. This was well-tolerated by the patient. There was no sense of active bleeding, or clot. There is no evidence of tumor polyp or stricture. The first and second portion of the duodenum were normal with evidence of bile only. The scope was brought back through the pylorus in a pro and retrograde fashion. The scope was brought back through the pylorus into the stomach with the scope was retroflexed, with a good look at the via. There is no evidence of Melony Castañeda tear. There was a spot of gastritis in the proximal stomach, but no tushar ulcer. Photo taken. There was moderate gastritis with redundant rugal folds the distal antrum. No biopsies were taken given the patient's risk for bleeding. The scope was brought through the GE junction. The Z-line was approximately 39 cm from the incisor. The esophagus was significant for circumferential grade 2- 3 esophageal varices involving the middle and distal thirds. Multiple photos were taken. There was no bleeding or clots. There was no evidence of tumor, stricture or ulceration. No banding was performed. The upper third of the esophagus was unremarkable. The scope was withdrawn with the patient's oropharynx. He tolerated procedure well Plan: 1. Supportive therapy with H2 blockers and/or proton pump inhibitors. 2. Alcohol cessation recommended 3. Surgery will sign off at this time; please reconsult if clinically indicated.
--- NOTE | 2020-02-13 12:08 | PDOC CRITICAL CARE PROG REPORT ---
General Date:: 02/13/20 Hospital Day:: 2 Resuscitation Status: Full Code Events in the past 12 to 24 Hours:: EGD showing distal 1/3 varices-not bleeding. Gastritis-not bleeding. Review of systems relevant to events:: GI Reason for ICU Addmission:: Hypotension and UGI bleeding. Resolved - Medications: Medications reviewed and adjusted accordingly: Yes Vasopressors:: None Sedation:: None Physical Exam Vital Signs: Temp Pulse Resp BP Pulse Ox 98.5 F 82 20 130/69 H 97 02/13/20 09:58 02/13/20 10:00 02/13/20 10:01 02/13/20 10:01 02/13/20 10:01 Intake & Output 02/12/20 02/13/20 02/14/20 06:59 06:59 06:59 Intake Total 0 300 Output Total 700 0 Balance -700 300 Weight 111.9 kg Weight/Height Weight 111.9 kg Height 6 ft General appearance: PRESENT: no acute distress, cooperative Head exam: PRESENT: atraumatic, normocephalic Eye exam: PRESENT: conjunctiva pink, EOMI, PERRLA. ABSENT: scleral icterus Ear exam: PRESENT: normal external ear exam Mouth exam: PRESENT: moist, tongue midline Respiratory exam: PRESENT: clear to auscultation marilin. ABSENT: rales, rhonchi, wheezes Cardiovascular exam: PRESENT: RRR. ABSENT: diastolic murmur, rubs, systolic murmur GI/Abdominal exam: PRESENT: normal bowel sounds, soft. ABSENT: distended, guarding, mass, organolmegaly, rebound, tenderness Rectal exam: PRESENT: deferred Extremities exam: PRESENT: full ROM. ABSENT: calf tenderness, clubbing, pedal edema Neurological exam: PRESENT: alert, awake, oriented to person, oriented to place, oriented to time, oriented to situation, CN II-XII grossly intact. ABSENT: motor sensory deficit Psychiatric exam: PRESENT: appropriate affect, normal mood. ABSENT: homicidal ideation, suicidal ideation Skin exam: PRESENT: dry, intact, warm. ABSENT: cyanosis, rash Laboratory/Radiographs Laboratory Results: 02/13/20 04:10 02/13/20 04:10 02/12/20 02/12/20 02/12/20 14:15 14:15 14:15 WBC 10.4 RBC 3.07 L Hgb 10.2 L Hct 29.0 L MCV 95 MCH 33.4 MCHC 35.3 RDW 15.5 H Plt Count 99 L Seg Neutrophils % 76.6 VBG pH VBG pCO2 VBG HCO3 VBG Base Excess Sodium 137.2 Potassium 3.3 L Chloride 105 Carbon Dioxide 23 Anion Gap 9 BUN 10 Creatinine 1.11 Est GFR ( Amer) > 60 Glucose 202 H Calcium 9.0 Total Bilirubin 1.6 H AST 63 H Alkaline Phosphatase 71 Total Protein 6.9 Albumin 3.1 L Urine Color Urine Appearance Urine pH Ur Specific [place] Urine Protein Urine Glucose (UA) Urine Ketones Urine Blood Urine Nitrite Ur Leukocyte Esterase Urine WBC (Auto) Urine RBC (Auto) Blood Type A POSITIVE Antibody Screen NEGATIVE 02/12/20 02/12/20 02/12/20 14:59 17:20 20:06 WBC 6.5 RBC 3.18 L Hgb 10.3 L Hct 29.4 L MCV 92 MCH 32.4 MCHC 35.1 RDW 16.0 H Plt Count 62 L Seg Neutrophils % VBG pH 7.33 VBG pCO2 35.3 VBG HCO3 18.0 L VBG Base Excess -7.2 Sodium Potassium Chloride Carbon Dioxide Anion Gap BUN Creatinine Est GFR ( Amer) Glucose Calcium Total Bilirubin AST Alkaline Phosphatase Total Protein Albumin Urine Color YELLOW Urine Appearance CLEAR Urine pH 7.0 Ur Specific [place] 1.010 Urine Protein NEGATIVE Urine Glucose (UA) NEGATIVE Urine Ketones NEGATIVE Urine Blood NEGATIVE Urine Nitrite NEGATIVE Ur Leukocyte Esterase NEGATIVE Urine WBC (Auto) 0 Urine RBC (Auto) 4 Blood Type Antibody Screen 02/13/20 02/13/20 02/13/20 00:35 04:10 04:10 WBC 5.6 4.8 RBC 2.90 L 2.86 L Hgb 9.6 L 9.5 L Hct 26.8 L 26.6 L MCV 92 93 MCH 33.0 33.1 MCHC 35.8 35.7 RDW 16.4 H 16.2 H Plt Count 61 L 58 L Seg Neutrophils % 62.9 VBG pH VBG pCO2 VBG HCO3 VBG Base Excess Sodium 142.4 Potassium 3.5 L Chloride 112 H Carbon Dioxide 25 Anion Gap 5 BUN 14 Creatinine 1.03 Est GFR ( Amer) > 60 Glucose 101 Calcium 8.6 Total Bilirubin 2.8 H AST 52 Alkaline Phosphatase 53 Total Protein 6.3 Albumin 2.7 L Urine Color Urine Appearance Urine pH Ur Specific [place] Urine Protein Urine Glucose (UA) Urine Ketones Urine Blood Urine Nitrite Ur Leukocyte Esterase Urine WBC (Auto) Urine RBC (Auto) Blood Type Antibody Screen 02/12/20 02/12/20 14:15 14:15 Creatine Kinase 196 H Troponin I < 0.012 Impressions: Chest X-Ray 02/12/20 14:14 IMPRESSION: No acute cardiopulmonary process. All labs, radiographs, diagnostic studies and EKGs were personally reviewed: Yes In addition, reports of radiographic and diagnostic studies were read: Yes Assessment and Plan - Diagnosis (1) UGI bleed Is this a current diagnosis for this admission?: Yes Plan: Stopped, likely from gastritis. No ETOH, stop Mobic. Protonix and carafate. (2) Alcohol abuse Is this a current diagnosis for this admission?: Yes Plan: Claims abstinence. Presence of varices makes cirrhosis more likely. (3) Hypotension Is this a current diagnosis for this admission?: Yes Plan: Resolved Plan Summary: Protonix, carafate. May need follow up for varices. Ok to downgrade. Critical Time Critical Time (minutes): 30 Level of Care: MEDICAL Anticipated discharge: Home Anticipated DC Timeframe: within 48 hours -: 1. The care of a critical patient is a dynamic process. This note is a insurance claims representative synopsis but static in nature. The timeframe for treatments given in order is not necessarily the actual time these treatments may have been done. 2. This patient requires critical care secondary to ongoing requirements for therapy not offered or safe outside the critical care environment. Transfer to a lower level of care will result in altered life or limb morbidity and mortality. 3. Multidisciplinary rounds completed. 4. ABCDE bundle addressed.
--- NOTE | 2020-02-13 14:56 | EKG REPORT ---
SEVERITY:- ABNORMAL ECG - SINUS TACHYCARDIA BORDERLINE R WAVE PROGRESSION, ANTERIOR LEADS NONSPECIFIC T ABNORMALITIES, INFERIOR LEADS PROLONGED QT INTERVAL : Confirmed by: Luiz Bernal 13-Feb-2020 14:54:59
[2020-02-13] MEDS ORDERED: LORATADINE 10 MG TABLET PO ONE (18:00)
[2020-02-14] MEDS ORDERED: LEVOTHYROXINE SODIUM 0.112 MG TABLET PO SCH (06:00)
[2020-02-14 06:37] LABS: HEMOGLOBIN 9.2 g/dL (13.5-17.0); MEAN CORPUSCULAR HEMOGLOBIN 32.9 pg (27.0-33.4); MEAN CORPUSCULAR HGB CONC 35.5 g/dL (32.0-36.0); MEAN CORPUSCULAR VOLUME 93 fl (80-97); RED CELL DISTRIBUTION WIDTH 15.8 % (11.5-14.0); WHITE BLOOD COUNT 4.9 10^3/uL (4.0-10.5)
[2020-02-14 06:58] LABS: PLATELET COUNT 50 10^3/uL (150-450)
[2020-02-14 07:37] LABS: HEPATITS B SURFACE ANTIGEN Negative (Negative)
[2020-02-14 09:15] VITALS: BP 128/78
--- NOTE | 2020-02-14 09:19 | PDOC DISCHARGE SUMMARY ---
Impression - Admit/DC Date/PCP Admission Date/Primary Care Provider: 02/12/20 17:24 MAGALY MCCRACKEN NP Discharge Date: 02/14/20 - Discharge Diagnosis (1) UGI bleed Is this a current diagnosis for this admission?: Yes (2) Alcohol abuse Is this a current diagnosis for this admission?: Yes (3) Hypotension Is this a current diagnosis for this admission?: Yes - Additional Information Resuscitation Status: Full Code Referrals: MAGALY MCCRACKEN NP, HEALTHCARE ADMINISTRATIVE ASSISTANT [Primary Care Provider] - Follow up as needed Home Medications: Cholecalciferol (Vitamin D3) [Vitamin D3 1000 Unit Tablet] 1,000 unit PO DAILY 02/12/20 Cyanocobalamin (Vitamin B-12) [B-12] 1,000 mcg PO DAILY 02/12/20 Levothyroxine Sodium [Synthroid 0.112 mg Tablet] 112 mcg PO DAILY 02/12/20 Losartan Potassium [Cozaar 50 mg Tablet] 50 mg PO DAILY 02/12/20 Meloxicam [Mobic] 7.5 mg PO DAILY 02/12/20 Metformin HCl 500 mg PO DAILY 02/12/20 Multivitamin [Tab-A-Juan Luis (Multiple Vitamin) Tablet] 1 tab PO DAILY 02/12/20 Omeprazole 40 mg PO DAILY 02/12/20 Potassium Chloride 10 meq PO DAILY 02/12/20 History of Present Illiness History of Present Illness: This patient is a 70 yo man who threw up today with no blood then threw up again noticing a large amount of maroon blood. He called EMS. He was hypotensive to 60/40 and received i unit RBBCs in the ambulance, 2 more here with 2L of NS. He has stable VS now with a BP of 124/70 and a HR of 115. Color is good, awake and oriented. Will have EGD later today by Dr. Goodman. For a large UGI blled with hypotension and as yet unknown cause is not unreasonable to keep overnight in the ICU. Hospital Course Hospital Course: The patient underwent an EGD 02/12 showing gastritis, not bleeding and moderate. Esophageal varices in the distal 1/3 of the esophagus, also not bleeding with no stigmata of recent bleeding. He has been on IV protonix, stable H/H with Hgb 9.2 this Am and ready to go home. Tolerating diet. Physical Exam Vital Signs: Temp Pulse Resp BP Pulse Ox 98 F 91 18 116/75 96 02/14/20 09:09 02/13/20 19:00 02/14/20 06:00 02/14/20 03:19 02/14/20 06:00 Intake & Output 02/13/20 02/14/20 02/15/20 06:59 06:59 06:59 Intake Total 0 1513 Output Total 700 500 Balance -700 1013 Weight 111.9 kg 111.7 kg General appearance: PRESENT: no acute distress, well-developed, well-nourished Head exam: PRESENT: atraumatic, normocephalic Eye exam: PRESENT: conjunctiva pink, EOMI, PERRLA. ABSENT: scleral icterus Ear exam: PRESENT: normal external ear exam Mouth exam: PRESENT: moist, tongue midline Respiratory exam: PRESENT: clear to auscultation marilin. ABSENT: rales, rhonchi, wheezes Cardiovascular exam: PRESENT: RRR. ABSENT: diastolic murmur, rubs, systolic murmur GI/Abdominal exam: PRESENT: normal bowel sounds, soft. ABSENT: distended, guarding, mass, organolmegaly, rebound, tenderness Rectal exam: PRESENT: deferred Extremities exam: PRESENT: full ROM. ABSENT: calf tenderness, clubbing, pedal edema Musculoskeletal exam: PRESENT: normal inspection Neurological exam: PRESENT: alert, awake, oriented to person, oriented to place, oriented to time, oriented to situation, CN II-XII grossly intact. ABSENT: motor sensory deficit Psychiatric exam: PRESENT: appropriate affect, normal mood. ABSENT: homicidal ideation, suicidal ideation Skin exam: PRESENT: dry, intact, warm. ABSENT: cyanosis, rash Results Laboratory Results: WBC 4.9 10^3/uL (4.0-10.5) 02/14/20 06:18 RBC 2.80 10^6/uL (4.35-5.55) L 02/14/20 06:18 Hgb 9.2 g/dL (13.5-17.0) L 02/14/20 06:18 Hct 26.0 % (37.9-51.0) L 02/14/20 06:18 MCV 93 fl (80-97) 02/14/20 06:18 MCH 32.9 pg (27.0-33.4) 02/14/20 06:18 MCHC 35.5 g/dL (32.0-36.0) 02/14/20 06:18 RDW 15.8 % (11.5-14.0) H 02/14/20 06:18 Plt Count 50 10^3/uL (150-450) L 02/14/20 06:18 Lymph % (Auto) 14.1 % (13-45) 02/13/20 04:10 [place] % (Auto) 12.3 % (3-13) 02/13/20 04:10 Eos % (Auto) 9.6 % (0-6) H 02/13/20 04:10 Baso % (Auto) 1.1 % (0-2) 02/13/20 04:10 Absolute Neuts (auto) 3.0 10^3/uL (1.7-8.2) 02/13/20 04:10 Absolute Lymphs (auto) 0.7 10^3/uL (0.5-4.7) 02/13/20 04:10 Absolute Monos (auto) 0.6 10^3/uL (0.1-1.4) 02/13/20 04:10 Absolute Eos (auto) 0.5 10^3/uL (0.0-0.6) 02/13/20 04:10 Absolute Basos (auto) 0.1 10^3/uL (0.0-0.2) 02/13/20 04:10 Seg Neutrophils % 62.9 % (42-78) 02/13/20 04:10 PT 16.5 SEC (11.4-15.4) H 02/13/20 04:10 INR 1.31 02/13/20 04:10 VBG pH 7.33 (7.30-7.42) 02/12/20 14:59 VBG pCO2 35.3 mmHg (35-63) 02/12/20 14:59 VBG HCO3 18.0 mmol/L (20-32) L 02/12/20 14:59 VBG Base Excess -7.2 mmol/L 02/12/20 14:59 Sodium 142.4 mmol/L (137-145) 02/13/20 04:10 Potassium 3.5 mmol/L (3.6-5.0) L 02/13/20 04:10 Chloride 112 mmol/L (98-107) H 02/13/20 04:10 Carbon Dioxide 25 mmol/L (22-30) 02/13/20 04:10 Anion Gap 5 (5-19) 02/13/20 04:10 BUN 14 mg/dL (7-20) 02/13/20 04:10 Creatinine 1.03 mg/dL (0.52-1.25) 02/13/20 04:10 Est GFR ( Amer) > 60 (>60) 02/13/20 04:10 Est GFR (MDRD) Non-Af > 60 (>60) 02/13/20 04:10 Glucose 101 mg/dL (75-110) 02/13/20 04:10 Calcium 8.6 mg/dL (8.4-10.2) 02/13/20 04:10 Total Bilirubin 2.8 mg/dL (0.2-1.3) H 02/13/20 04:10 Direct Bilirubin 0.5 mg/dL (0.0-0.4) H 02/13/20 04:10 Neonat Total Bilirubin Not Reportable 02/13/20 04:10 Neonat Direct Bilirubin Not Reportable 02/13/20 04:10 Neonat Indirect Bili Not Reportable 02/13/20 04:10 AST 52 U/L (17-59) 02/13/20 04:10 ALT 30 U/L (<50) 02/13/20 04:10 Alkaline Phosphatase 53 U/L (38-126) 02/13/20 04:10 Lactate Dehydrogenase 237 U/L (120-246) 02/12/20 14:15 Creatine Kinase 196 U/L (55-170) H 02/12/20 14:15 Troponin I < 0.012 ng/mL 02/12/20 14:15 Total Protein 6.3 g/dL (6.3-8.2) 02/13/20 04:10 Albumin 2.7 g/dL (3.5-5.0) L 02/13/20 04:10 Urine Color YELLOW 02/12/20 17:20 Urine Appearance CLEAR 02/12/20 17:20 Urine pH 7.0 (5.0-9.0) 02/12/20 17:20 Ur Specific [place] 1.010 02/12/20 17:20 Urine Protein NEGATIVE mg/dL (NEGATIVE) 02/12/20 17:20 Urine Glucose (UA) NEGATIVE mg/dL (NEGATIVE) 02/12/20 17:20 Urine Ketones NEGATIVE mg/dL (NEGATIVE) 02/12/20 17:20 Urine Blood NEGATIVE (NEGATIVE) 02/12/20 17:20 Urine Nitrite NEGATIVE (NEGATIVE) 02/12/20 17:20 Urine Bilirubin NEGATIVE (NEGATIVE) 02/12/20 17:20 Urine Urobilinogen NEGATIVE mg/dL (<2.0) 02/12/20 17:20 Ur Leukocyte Esterase NEGATIVE (NEGATIVE) 02/12/20 17:20 Urine WBC (Auto) 0 /HPF 02/12/20 17:20 Urine RBC (Auto) 4 /HPF 02/12/20 17:20 U Hyaline Cast (Auto) 1 /LPF 02/12/20 17:20 Urine Mucus (Auto) RARE /LPF 02/12/20 17:20 Urine Ascorbic Acid NEGATIVE (NEGATIVE) 02/12/20 17:20 Influenza A (RT-PCR) NEGATIVE (NEGATIVE) 02/12/20 14:39 Influenza B (RT-PCR) NEGATIVE (NEGATIVE) 02/12/20 14:39 RSV (RT-PCR) NEGATIVE (NEGATIVE) 02/12/20 14:39 SARS-CoV-2 Rap RNA(RT-PCR) NEGATIVE (NEGATIVE) 02/12/20 14:39 Blood Type A POSITIVE 02/12/20 14:15 Antibody Screen NEGATIVE 02/12/20 14:15 Crossmatch See Detail 02/12/20 14:15 02/12/20 14:15 Troponin I < 0.012 Impressions: Chest X-Ray 02/12/20 14:14 IMPRESSION: No acute cardiopulmonary process. Plan Health Concerns: Rebleed Plan of Treatment: Protonix 40mg bid for 1 month. Carafate 1 gm qid for 1 month. [place] [facility] for the bleeding and his liver disease. Goals: No further bleeding and healing of his gastritis. Critical Time: 30 Level of Care: MEDICAL Stroke Is this a Stroke Patient?: No Acute Heart Failure Is this a Heart Failure Patient?: No
[2020-02-14] MEDS ORDERED: LOSARTAN POTASSIUM 50 MG TABLET PO SCH (10:00)
[2020-02-14] MEDS ORDERED: CHOLECALCIFEROL (D3) 1,000 UNIT (25 MCG) TABLET PO SCH (10:00)
[2020-02-14] MEDS ORDERED: POTASSIUM CHLORIDE 10 MEQ PO SCH (10:00)
[2020-02-14] MEDS ORDERED: SUCRALFATE 1 GM TABLET PO SCH (10:00)
[2020-02-14] MEDS ORDERED: POTASSIUM CHLORIDE 10 MEQ TABLET.ER PO SCH (10:00)
[2020-02-14] MEDS ORDERED: METFORMIN HCL 500 MG TABLET PO SCH (10:00)
[2020-02-14 11:20] LABS: HEPATITIS C VIRUS ANTIBODY <0.1 s/co ratio (0.0-0.9)
[2020-02-14] MEDS ORDERED: PANTOPRAZOLE SODIUM 40 MG TABLET.DR PO SCH (17:00)
== END 2020-02-14 10:30 | disposition home or self-care (01) | DRG 379 ==
LOC: ER 14:07 → EH 17:24 → ICU 18:13
PROVIDERS: ADMIT Anesthesiology; ATTEND Anesthesiology
PROC: 30233N1 Transfusion of Nonautologous Red Blood Cells into Peripheral Vein, Percutaneous Approach (ICD-10-PCS; principal; 2020-02-12)
PROC: 30233K1 Transfusion of Nonautologous Frozen Plasma into Peripheral Vein, Percutaneous Approach (ICD-10-PCS; 2020-02-12)
PROC: 30233N1 Transfusion of Nonautologous Red Blood Cells into Peripheral Vein, Percutaneous Approach (ICD-10-PCS; 2020-02-12)
PROC: 0DJ08ZZ Inspection of Upper Intestinal Tract, Via Natural or Artificial Opening Endoscopic (ICD-10-PCS; 2020-02-13)
DX: K29.71 Gastritis, unspecified, with bleeding (principal); K74.60 Unspecified cirrhosis of liver; I85.10 Secondary esophageal varices without bleeding; I95.1 Orthostatic hypotension; F10.10 Alcohol abuse, uncomplicated; I10 Essential (primary) hypertension; I95.9 Hypotension, unspecified; E11.9 Type 2 diabetes mellitus without complications; K64.9 Unspecified hemorrhoids; F17.200 Nicotine dependence, unspecified, uncomplicated; Z88.8 Allergy status to other drugs, medicaments and biological substances; Z20.828 Contact with and (suspected) exposure to other viral communicable diseases
CPT/HCPCS: 36415; 36430; 43235; 71045; 731; 80053; 80074; 81001; 82550; 82803; 82962; 83615; 84484; 85025; 85027; 85610; 86850; 86900; 86901; 86920; 90471; 90686; 93005; 93010; 96361; 96374; 96375; 99140; 99238; 99285; 99291; 0241U; C9113; C9803; G0008; J0171; J1200; J1610; J2250; J2310; J2405; J2704; J3010; J3480; J3490; J7050; J7120; P9016; P9017